=== PATIENT | male | born 1940 | race Caucasian/White ===

== ENCOUNTER 2018-09-06 15:09 | Inpatient (IN) | payer MEDICARE, OTHER ==
[~2018-09-06] VITALS: Ht 182.9 cm; Wt 76.7 kg
[~2018-09-06 15:09] MED LIST: PIPERACILLIN /TAZOBACTAM 2.25 G in IV D5W 50 ML IV SCH
--- NOTE | 2018-09-06 15:22 | NUR ---
DR BRAMBILA AT BEDSIDE FOR EVAL.
--- NOTE | 2018-09-06 15:27 | NUR ---
IV LINE STARTED BLOOD DRAWN AND SENT TO LAB.
--- NOTE | 2018-09-06 15:28 | NUR ---
PT BIBRA FROM SNF TO ED BED 08. FAMILY AT BEDSIDE ENDORSING FEVER EARLIER. PT WAS GIVEN TYLENOL PRIOR TO TRANSFER. DIALYSIS PT. GOWNED AND PLACED ON MONITOR. AWAITING MD WATTERS.
[2018-09-06] MEDS ORDERED: IV NS 0.9% 1,000 ML BAG IV ONE ×2 (15:30→16:30)
[2018-09-06 15:40] LABS: EOSINOPHILS % (AUTO) 0.1 % (0.0-6.0); HEMATOCRIT 28 % (39-51); HEMOGLOBIN 8.9 g/dL (13.5-17.5); MONOCYTES # (AUTO) 0.6 /CMM (0.1-1.30)
[2018-09-06 15:43] LABS: BASOPHILS % (AUTO) 0.2 % (0.0-2.0); LYMPHOCYTES # (AUTO) 0.5 /CMM (0.8-4.8); LYMPHOCYTES % (AUTO) 2.5 % (20.0-44.0); MEAN CORPUSCULAR HGB CONC 32 g/dl (31.0-36.0); MEAN CORPUSCULAR VOLUME 91 fL (80-96); MONOCYTES % (AUTO) 2.8 % (2.0-12.0); NEUTROPHILS # (AUTO) 19.2 /CMM (1.8-8.9); NEUTROPHILS % (AUTO) 94.4 % (43.0-81.0); PLATELET COUNT (AUTO) 279 /CMM (150-450); RED BLOOD CELL COUNT(AUTO) 3.06 MIL/uL (4.5-6.0); WHITE BLOOD COUNT (AUTO) 20.3 K/uL (4.3-11.0)
[2018-09-06 15:48] LABS: CALCIUM, SERUM 9.5 mg/dL (8.5-10.1); CARBON DIOXIDE 26 mmol/L (21-32); CHLORIDE 102 mmol/L (98-107); CREATININE 2.5 mg/dL (0.6-1.3); GLUCOSE 173 mg/dL (74-106); POTASSIUM 4.1 mmol/L (3.5-5.1); SODIUM SERUM 138 mmol/L (136-145); UREA NITROGEN, BLOOD 47 mg/dL (7-18)
[2018-09-06 15:53] LABS: ALANINE AMINOTRANSFERASE 26 U/L (12-78); ALBUMIN 1.9 g/dL (3.4-5.0); ALKALINE PHOSPHATASE 168 U/L (46-116); ASPARTATE AMINOTRANSFERASE 24 U/L (15-37); BILIRUBIN,DIRECT 0.1 mg/dL (0.0-0.2); BILIRUBIN,TOTAL 0.4 mg/dL (0.2-1.0); TOTAL PROTEIN, SERUM 7.6 g/dL (6.4-8.2)
[2018-09-06] MEDS ORDERED: [UNRECOGNIZED DRUG - CODE] TD (16:02)
[2018-09-06] MEDS ORDERED: ASPI-1169 GT (16:02)
[2018-09-06] MEDS ORDERED: ATOR10TA GT (16:02)
[2018-09-06] MEDS ORDERED: BUDE0.5A4 IH (16:02)
[2018-09-06] MEDS ORDERED: POLY17PO4 GT (16:02)
[2018-09-06] MEDS ORDERED: CHLO473M5 MM (16:02)
[2018-09-06] MEDS ORDERED: LIDO30CR47 TP (16:02)
[2018-09-06] MEDS ORDERED: METO25TA20 GT (16:02)
[2018-09-06] MEDS ORDERED: CLON0.1T GT (16:02)
[2018-09-06] MEDS ORDERED: DOCU50LI GT (16:02)
[2018-09-06] MEDS ORDERED: VIT500LI GT (16:02)
[2018-09-06] MEDS ORDERED: AMIO200T4 GT (16:02)
[2018-09-06] MEDS ORDERED: SEVE0.8P GT (16:02)
[2018-09-06] MEDS ORDERED: ACET650S26 GT (16:02)
[2018-09-06] MEDS ORDERED: FOLI0.8T23 GT (16:02)
[2018-09-06] MEDS ORDERED: NPH,100V SQ (16:02)
[2018-09-06] MEDS ORDERED: OMEG1CAP GT (16:02)
[2018-09-06] MEDS ORDERED: TRAM50TA2 GT ×2 (16:02)
[2018-09-06] MEDS ORDERED: IPRA3AMP23 IH (16:02)
[2018-09-06] MEDS ORDERED: ERYT200S16 GT (16:02)
[2018-09-06] MEDS ORDERED: INSU100V39 SQ (16:02)
[2018-09-06] MEDS ORDERED: METO5SOL2 GT (16:02)
[2018-09-06] MEDS ORDERED: BISA10SU11 RC (16:02)
[2018-09-06] MEDS ORDERED: LANS30CA54 GT (16:02)
[2018-09-06] MEDS ORDERED: ONDA4TAB5 GT (16:02)
[2018-09-06 16:13] LABS: APPEARANCE,URINE Slightly Cloudy (CLEAR); BILIRUBIN,URINE Negative (NEGATIVE); BLOOD, URINE Trace-lysed Ery/uL (NEGATIVE); COLOR,URINE Yellow (YELLOW); KETONES,URINE Negative (NEGATIVE); LEUKOCYTE ESTERASE ,URINE Large (NEGATIVE); NITRITE, URINE Negative (NEGATIVE); PROTEIN,URINE >=300 mg/dl (NEGATIVE); UGLUCOSE Negative (NEGATIVE); UROBILINOGEN,URINE 0.2 EU/dL (0.2)
[2018-09-06 16:20] LABS: BACTERIA,URINE Many /HPF (None Seen); SQUAMOUS EPITHELIAL CELL,UR Few /HPF (None Seen); WBC,URINE 21-50 /HPF (0-3)
[2018-09-06] MEDS ORDERED: IV NS 0.9% 500 ML BAG IV ONE (16:30)
[2018-09-06] MEDS ORDERED: PIPERACILLIN /TAZOBACTAM 3.375 G in IV D5W 50 ML IV ONE (17:00)
[2018-09-06] MEDS ORDERED: VANCOMYCIN 1 GM in IV D5W 250 ML IV ONE (17:00)
--- NOTE | 2018-09-06 17:57 | NUR ---
REPORT GIVEN TO MARVA ORELLANA. PT AWAITING TRANSFER TO FLOOR.
[2018-09-06] MEDS ORDERED: MAG HYDROX/AL HYDROX/SIMETH 30 ML UDC GT PRN (18:00)
[2018-09-06] MEDS ORDERED: ONDANSETRON HCL/PF 4 MG/2 ML VIAL IVP PRN (18:00)
[2018-09-06] MEDS ORDERED: CLONIDINE HCL 0.1 MG TABLET GT PRN (18:00)
[2018-09-06] MEDS ORDERED: DEXTROSE 50%-WATER 50 ML DISP.SYRIN IV PRN (18:00)
[2018-09-06] MEDS ORDERED: ALBUTEROL FS 2.5 MG/3 ML VIAL.NEB NEB PRN (18:00)
[2018-09-06] MEDS ORDERED: IPRATROPIUM NEB FS 0.5 MG/2.5 ML AMPUL.NEB NEB PRN (18:00)
[2018-09-06] MEDS ORDERED: BISACODYL SUPP (10 MG) 10 MG/SUPP.RECT SUPP.RECT RC PRN (18:00)
[2018-09-06] MEDS ORDERED: MORPHINE SULFATE INJ 2 MG/ML DISP.SYRIN IV PRN (18:00)
[2018-09-06] MEDS ORDERED: MAGNESIUM HYDROXIDE 30 ML UDC GT PRN (18:00)
[2018-09-06] MEDS ORDERED: HYDROCODONE/APAP 5/325MG 1 EACH TABLET GT PRN (18:00)
[2018-09-06] MEDS ORDERED: METOCLOPRAMIDE HCL 10 MG/10 ML UDC GT PRN (18:00)
[2018-09-06] MEDS ORDERED: FEE PK DOSING 1 MIN EA MC ONE (18:05)
--- NOTE | 2018-09-06 18:20 | NUR ---
VICE PRESIDENT SUPPLY CHAINNURSE AUDITOR NOTE PT ARRIVED TO TELE UNIT IN STABLE [place]ON VIA GURNEY ACCOMPANIED BY ER STAFF AND DAUGHTER. PT IS A/O 1, APPEARS TO BE ALTERED. CURRENTLY HAS A TRACH ON COOL AEROSOL ON 2L/MIN SAT 99%.RESPIRATIONS ARE EVEN AND UNLABORED, NOT IN ANY ACUTE DISTRESS NOTED. NOTIFIED RT TO EXAMINE THE PT. PUPILS ARE REACTIVE TO LIGHT. ABDOMEN IS SOFT AND NONDISTENDED, BOWEL SOUNDS ARE PRESENT IN ALL 4 QUADRANTS UPON AUSCULTATION. NO BLADDER DISCOMFORT. PER DAUGHTER, PT NEEDS TO BE ON ROHO CUSHION D/T "STAGE 3 WOUND" PER DTR. BP WNL. DR. BORRERO NOTIFIED OF ADMISSION. SAFETY MEASURES ARE IN PLACE. INSTRUCTED PT AND DTR TO USE CALL LIGHT WHEN ASSISTANCE IS NEEDED, CALL LIGHT IS LEFT WITHIN REACH. WILL ENDORSE TO NEXT SHIFT FOR CONTINUITY OF CARE.
[2018-09-06] MEDS ORDERED: IV NS 0.9% 1,000 ML IV PRN (18:30)
[2018-09-06 20:00] VITALS: BP 105/50
--- NOTE | 2018-09-06 20:00 | NUR ---
CAMPUS DEAN NOTES PATIENT ASLEEP IN BED WITH NO DISTRESS NOTED. CALL LIGHT WITHIN REACH. TRACH INTACT AND PATENT. NO RESPIRATORY DISTRESS NOTED. GT INTACT AND PATENT. NO FACIAL GRIMACING OR GROANING TO INDICATE PAIN OR DISCOMFORT. MIDLINE INTACT AND PATENT. ALL BELONGINGS KEPT NEAR BEDSIDE. WILL CONTINUE TO MONITOR.
[2018-09-06 20:05] LABS: BAND % (MANUAL) 5 % (0.0-5.0); LYMPHOCYTES % (MANUAL) 2 % (16-48); MONOCYTES % (MANUAL) 6 % (0-11.0); NEUTROPHILS % (MANUAL) 87 (42-76)
[2018-09-06] MEDS ORDERED: ATORVASTATIN 10 MG TABLET GT SCH (22:00)
--- NOTE | 2018-09-06 22:15 | NUR ---
SPOKE WITH DR. MORENO RE: CRITICAL TROPONIN 1.122 WITH NNO RECEIVED. PATIENT ASLEEP AND REMAINS TACTILE TO ALL STIMULI. NO DISTRESS NOTED. VITALS WNL. WILL CONTINUE TO MONITOR
[2018-09-06] MEDS: ASPIRIN 81 MG TAB.CHEW GT SCH (22:47)
[2018-09-06] MEDS: MEROPENEM 500 MG in IV NS 0.9% 50 ML IV SCH (22:48)
[2018-09-06] MEDS: BLOOD SUGAR DIAGNOSTIC 1 EACH STRIP IN SCH ×2 (22:48→23:14)
[2018-09-06] MEDS: HEPARIN SODIUM, PORCINE 5000 UNITS/1 ML VIAL SQ SCH (22:51)
[2018-09-07] VITALS: BP 103/44
[2018-09-07 04:00] VITALS: BP 112/48
[2018-09-07] MEDS: BLOOD SUGAR DIAGNOSTIC 1 EACH STRIP IN SCH ×3 (06:25→18:23)
[2018-09-07] MEDS: INSULIN REGULAR, HUMAN 100 UNIT/ML 3 ML VIAL SQ PRN ×3 (06:25→18:24)
--- NOTE | 2018-09-07 06:37 | NUR ---
MAGAZINE EDITOR NOTES PATIENT ASLEEP IN BED WITH NO DISTRESS NOTED. CALL LIGHT WITHIN REACH. TRACH INTACT AND PATENT. GTF RUNNING AT 65ML/HR. NO ABDOMINAL DISTENTION NOTED. SKIN CARE RENDERED AND TOLERATED WELL. REPOSITIONED Q2HRS AND PRN. NO FACIAL GRIMACING OR GROANING TO INDICATE PAIN OR DISCOMFORT. BLADDER SCANS RENDERED ORDERED. ALL DUE MEDS GIVEN ORDERED WITH NO ASE NOTED. RIGHT HAND MITTEN INTACT WITH NO NEW SKIN BREAKDOWN OR DISCOLORATION AND NOTED WITH GOOD CIRCULATION. REMOVED Q2HRS AND PRN. BED IN LOW LOCK SETTING. ALL BELONGINGS KEPT NEAR BEDSIDE. WILL ENDORSE TO ONCOMING SHIFT.
[2018-09-07 07:17] LABS: BASOPHILS % (AUTO) 0.3 % (0.0-2.0); CALCIUM, SERUM 8.5 mg/dL (8.5-10.1); CARBON DIOXIDE 21 mmol/L (21-32); CHLORIDE 104 mmol/L (98-107); CREATININE 2.8 mg/dL (0.6-1.3); EOSINOPHILS % (AUTO) 1.2 % (0.0-6.0); GLUCOSE 228 mg/dL (74-106); HEMATOCRIT 23 % (39-51); HEMOGLOBIN 7.6 g/dL (13.5-17.5); LYMPHOCYTES # (AUTO) 0.4 /CMM (0.8-4.8); LYMPHOCYTES % (AUTO) 3.2 % (20.0-44.0); MAGNESIUM 2.1 mg/dL (1.8-2.4); MEAN CORPUSCULAR HGB CONC 32 g/dl (31.0-36.0); MEAN CORPUSCULAR VOLUME 93 fL (80-96); MONOCYTES # (AUTO) 0.5 /CMM (0.1-1.30); MONOCYTES % (AUTO) 3.9 % (2.0-12.0); NEUTROPHILS # (AUTO) 11.7 /CMM (1.8-8.9); NEUTROPHILS % (AUTO) 91.4 % (43.0-81.0); PHOSPHORUS 2.7 mg/dL (2.5-4.9); PLATELET COUNT (AUTO) 222 /CMM (150-450); POTASSIUM 3.9 mmol/L (3.5-5.1); RED BLOOD CELL COUNT(AUTO) 2.52 MIL/uL (4.5-6.0); SODIUM SERUM 137 mmol/L (136-145); UREA NITROGEN, BLOOD 54 mg/dL (7-18); WHITE BLOOD COUNT (AUTO) 12.8 K/uL (4.3-11.0)
[2018-09-07 07:23] LABS: CHOLESTEROL 84 mg/dL (<200); HDL CHOLESTEROL 21 mg/dL (40-60); LDL 40 mg/dL (0-99); THYROID STIMULATING HORMONE 5.644 uIU/mL (0.358-3.74); TRIGLYCERIDES 255 mg/dL (30-150)
[2018-09-07] MEDS: BUDESONIDE RESPULE INH 0.25 MG/2 ML AMPUL.NEB NEB SCH ×2 (07:30→19:14)
[2018-09-07 08:00] VITALS: BP 119/39
--- NOTE | 2018-09-07 08:23 | NUR ---
[place] MARSHAL OPENING NOTES PATIENT RECEIVED ASLEEP IN BED WITH NO SOB OR ACUTE DISTRESS NOTED. ALERT TO VERBAL AND TOUCH, NON VERBAL. TRACH INTACT AND PATENT. GTF RUNNING AT 65ML/HR. NO ABDOMINAL DISTENTION NOTED. SKIN CARE RENDERED DURING CABLE STRANDER. REPOSITIONED Q2HRS AND PRN. NO FACIAL GRIMACING OR GROANING. RIGHT HAND MITTEN INTACT WITH NO NEW SKIN BREAKDOWN OR DISCOLORATION AND NOTED WITH GOOD CIRCULATION. REMOVED Q2HRS AND PRN. SAFETY MEASURES IN PLACE, BED IN LOW LOCK SETTING, CALL LIGHT WITHIN REACH. WILL CONTINUE TO MONITOR.
[2018-09-07] MEDS: METOPROLOL TARTRATE 25 MG TABLET GT SCH ×2 (09:00→17:39)
[2018-09-07] MEDS: AMIODARONE HCL 200 MG TABLET GT SCH (09:00)
[2018-09-07 09:14] LABS: IRON, SERUM 23 ug/dl (50-175); TOTAL IRON BINDING CAPACITY 102 ug/dl (250-450)
[2018-09-07] MEDS: SEVELAMER CARBONATE 0.8 GM POWD.PACK GT SCH ×3 (09:42→17:39)
[2018-09-07] MEDS: CHLORHEXIDINE GLUCONATE 15 ML UDC MM SCH ×2 (09:42→17:39)
[2018-09-07] MEDS: VIT B CMPLX 3/FA/VIT C/BIOTIN 1 TAB TABLET GT SCH (09:42)
[2018-09-07] MEDS: ASPIRIN 81 MG TAB.CHEW GT SCH (09:42)
[2018-09-07] MEDS: DOCUSATE SODIUM LIQ 100 MG/10 ML UDC GT SCH (09:42)
[2018-09-07] MEDS: HEPARIN SODIUM, PORCINE 5000 UNITS/1 ML VIAL SQ SCH ×2 (09:45→22:07)
[2018-09-07 09:48] LABS: FERRITIN 2315 ng/mL (8-388)
[2018-09-07] MEDS: MEROPENEM 500 MG in IV NS 0.9% 50 ML IV SCH ×2 (11:05→22:05)
[2018-09-07] MEDS: ACETAMINOPHEN 325 MG TABLET MC PRN ×2 (11:06→17:38)
--- NOTE | 2018-09-07 12:00 | NUR ---
BP MEDS HELD DUE TO LOW BP AND UPCOMING DIALYSIS TREATMENT.
[2018-09-07 12:35] LABS: ABG BASE EXCESS -3.9 mmol/L; ABG OXYGEN SATURATION 95.8 % (92.0-98.5); ABG PCO2 32.1 mmHg (35.0-45.0); ABG PH 7.415 (7.350-7.450); ABG PO2 82.1 mmHg (75.0-100.0); AaDO2 79.7 mmHg; COHb 0.8 % (0.5-1.5); MetHb 0.5 % (0.0-1.5); O2Hb 94.6 % (94.0-97.0); SITE, ABG Right Radial
[2018-09-07] MEDS: DAKINS QUARTER STRENGTH (0.125%) 480 ML BOTTLE TOP SCH (13:33)
--- NOTE | 2018-09-07 14:35 | NUR ---
MS RN NOTE WOUND CARE ORDERS NOT PRESENT UPON TAKING OVER CARE OF PATIENT. FAMILY AT BEDSIDE AND DEMANDING THAT ALL WOUND CARE PROCEDURES AND MEDICATION BE SIMILAR TO THOSE USED AT [facility]. SACRAL WOUND CARE COMPLETED W/ SALINE, DAKINS, GAUZE PACKING AND MEPILEX COVERAGE. MD NOTIFIED. STATED THAT IT IS OK TO TREAT WOUND PER FAMILY REQUEST AND TO PLACE ORDERS FOR WOUND CARE SUPPLIES THAT EXIST IN PATIENTS SNF CHART. PATIENT REPOSITIONED [id number] AND POSITIONED FAMILY REQUESTED. FAMILY APPEARED SATISFIED AT CONCLUSION OF WOUND CARE AND POSITIONING. PATIENT TO HAVE HD.
[2018-09-07] MEDS ORDERED: VANCOMYCIN 1 GM in IV D5W 250 ML IV ONE (15:00)
[2018-09-07 16:00] VITALS: BP 145/70
--- NOTE | 2018-09-07 17:00 | NUR ---
MS RN NOTE WOUND CARE COMPLETED A SECOND TIME AT [facility] REQUEST TO USE THE REQUESTED HONEY-MED OINTMENT THAT PATIENT BROUGHT TO HOSPITAL. OK'D USE OF SAID OINTMENT. ORDERS PER MD PLACED. PATIENT FAMILY OBSERVED PROCESS AND WERE SATISFIED.
[2018-09-07] MEDS ORDERED: LIDOCAINE 5% OINT 35.44 GM TUBE TP PRN (17:30)
--- NOTE | 2018-09-07 17:45 | NUR ---
MS RN NOTE DIALYSIS COMPLETED WITHOUT INCIDENT. 2 LITERS REMOVED.
[2018-09-07] MEDS ORDERED: VANCOMYCIN POST DIALYSIS 500MG IV PRN ×2 (18:00)
--- NOTE | 2018-09-07 18:00 | NUR ---
MS RN NOTE VANCOMYCIN DUE AT 1500 GIVEN AT 1800 D/T DIALYSIS TREATMENT BEING COMPLETED.
--- NOTE | 2018-09-07 18:10 | NUR ---
MS RN NOTE ORDERS FOR PATIENT REQUESTED WOUND CARE ITEMS PLACE. HONEY-MED AND LIDOCAINE.
--- NOTE | 2018-09-07 19:12 | NUR ---
ENGINE SETTER CLOSING NOTES PATIENT ASLEEP IN BED WITH NO SOB OR ACUTE DISTRESS NOTED. TRACH INTACT AND PATENT. GTF RUNNING AT 65ML/HR. NO ABDOMINAL DISTENTION NOTED. WOUND CARE RENDERED TWICE DURING SHIFT AT FAMILY REQUEST. PATIENT REPOSITIONED Q2HRS AND PRN. DIALYSIS COMPLETED TODAY W/ 2 LITERS FLUID REMOVED. RFA IV INTACT AND PATENT. ALL DUE MEDS GIVEN ORDERED WITH NO ASE NOTED. RIGHT HAND MITTEN INTACT WITH NO NEW SKIN BREAKDOWN OR DISCOLORATION AND NOTED WITH GOOD CIRCULATION. REMOVED Q2HRS AND PRN. BED IN LOW LOCK SETTING. ALL BELONGINGS KEPT NEAR BEDSIDE. CALL LGHT WITHIN REACH. FAMILY AT BEDSIDE. WILL ENDORSE TO ONCOMING SHIFT.
--- NOTE | 2018-09-07 19:30 | NUR ---
AMBIKA RN OPENING NOTES BEDSIDE REPORT RECIEVED PATIENT SEEN IN BED. NO SOB OR ACUTE DISTRESS NOTED. TRACH INTACT AND PATENT. GTF RUNNING AT 65ML/HR. NO ABDOMINAL DISTENTION NOTED. MONTY AT THE BEDSIDE. POC REVIEWED QUESTIONS CONCERNS ADDRESSED. REAASSURED THAT PATIENT WILL BE REPOSITIONED Q2HRS AND PRN. RFA IV INTACT AND PATENT. RIGHT HAND MITTEN INTACT WITH NO NEW SKIN BREAKDOWN OR DISCOLORATION AND NOTED WITH GOOD CIRCULATION. BED IN LOW LOCKED POSITION SRX3. CALL LIGHT WITHIN REACH. WILL CONT TO MONITOR.
[2018-09-07 20:00] VITALS: BP 109/53
--- NOTE | 2018-09-07 20:00 | NUR ---
patient still has monitor tech applied order to change to med surge. pt requests to leave it on charge nurse and tele monitor notified.. patient sr in 70's
--- NOTE | 2018-09-07 20:10 | NUR ---
patient repositioned to left side with ferdinand leong. nena at the bedside.
--- NOTE | 2018-09-07 22:00 | NUR ---
patient repositioned to right side with ferdinand leong.
--- NOTE | 2018-09-07 23:05 | NUR ---
nena jennifer. updated on patient status. questions concerns addressed.
[2018-09-08] VITALS (16 sets, daily range): BP systolic 96–132; BP diastolic 36–61
--- NOTE | 2018-09-08 00:18 | NUR ---
Dr. Sultana ordered 1 unit of prbc for infusion for today that was not carried. out. Dr. Jin [facility] Provider called and informed this orders was not carried out. dr. eckert patient hemoglobin is 7.6 and is reciving hemodialysis. new order to hold unit of blood and infuse at next dialyisis treatment. Addendum: 09/08/18 at 0234 by ELLE RANDOLPH RN patient repositioned to left side. with ferdinand hartmann
--- NOTE | 2018-09-08 00:30 | NUR ---
Tube feeding ended. To resume tomorrow at 8am after 8 hour stop.
[2018-09-08] MEDS: BLOOD SUGAR DIAGNOSTIC 1 EACH STRIP IN SCH ×4 (02:15→17:37)
--- NOTE | 2018-09-08 02:15 | NUR ---
bladder scan, accucheck bladder scan performed less then 50 ml present in bladder of urine. accucheck performed late. insulin held until next scheduled dose. patient repositioned to right side.
--- NOTE | 2018-09-08 06:15 | NUR ---
rn pm closing note. patient turned and repositioned to right side. iv to right fa heplocked patent, intact. patient tube feeding on hold residual was 30ml. to resume tube feedign at 0800. bed down locked air matress inflated. trach collar in place breathing even and unlabored. will cont to monitor. on tele for obserbationj hr 69 sr. will endorse to next shift.
[2018-09-08] MEDS: INSULIN REGULAR, HUMAN 100 UNIT/ML 3 ML VIAL SQ PRN ×3 (06:19→17:21)
[2018-09-08 07:00] LABS: BASOPHILS % (AUTO) 0.2 % (0.0-2.0); EOSINOPHILS % (AUTO) 0.8 % (0.0-6.0); HEMATOCRIT 23 % (39-51); HEMOGLOBIN 7.6 g/dL (13.5-17.5); LYMPHOCYTES # (AUTO) 0.9 /CMM (0.8-4.8); LYMPHOCYTES % (AUTO) 6.8 % (20.0-44.0); MEAN CORPUSCULAR HGB CONC 33 g/dl (31.0-36.0); MEAN CORPUSCULAR VOLUME 91 fL (80-96); MONOCYTES # (AUTO) 0.7 /CMM (0.1-1.30); MONOCYTES % (AUTO) 4.9 % (2.0-12.0); NEUTROPHILS % (AUTO) 87.3 % (43.0-81.0); PLATELET COUNT (AUTO) 239 /CMM (150-450); RED BLOOD CELL COUNT(AUTO) 2.56 MIL/uL (4.5-6.0); WHITE BLOOD COUNT (AUTO) 13.8 K/uL (4.3-11.0)
[2018-09-08 07:05] LABS: ALANINE AMINOTRANSFERASE 19 U/L (12-78); ALBUMIN 1.6 g/dL (3.4-5.0); ALKALINE PHOSPHATASE 119 U/L (46-116); ASPARTATE AMINOTRANSFERASE 17 U/L (15-37); BILIRUBIN,TOTAL 0.4 mg/dL (0.2-1.0); CALCIUM, SERUM 8.5 mg/dL (8.5-10.1); CARBON DIOXIDE 27 mmol/L (21-32); CHLORIDE 101 mmol/L (98-107); CREATININE 2.3 mg/dL (0.6-1.3); GLUCOSE 169 mg/dL (74-106); MAGNESIUM 1.9 mg/dL (1.8-2.4); PHOSPHORUS 1.3 mg/dL (2.5-4.9); SODIUM SERUM 136 mmol/L (136-145); TOTAL PROTEIN, SERUM 6.6 g/dL (6.4-8.2); UREA NITROGEN, BLOOD 37 mg/dL (7-18)
--- NOTE | 2018-09-08 07:31 | NUR ---
MS RN OPENING NOTES RECEIVED PT ASLEEP IN BED, EASILY AROUSED. A/O X1; NONVERBAL. PT ON TRACH T-PIECE AT 5L, WITH NO ACUTE RESPIRATORY DISTRESS NOTED. PT NOT EXHIBITING PAIN OR ANY DISCOMFORT AT THIS TIME. PT A MS PT PER NIGHT NURSE BUT REQUESTED PT TO BE STILL ON TELEMONITORING, SR WITH HR 72. PIV RFA G18 SL,FLUSHED WITH NS, INTACT AND OPERATIONAL. SOFT MITTEN TO RIGHT HAND NOTED FOR ACUTE MEDICAL RESTRAINTS, WILL ASSESS PER PROTOCOL. ALSO, PER NIGHT NURSE, ORDER TO TRANSFUSE BLOOD FROM 09/07 CLARIFIED; TO TRANSFUSE BLOOD WITH THE NEXT HD. PT KEPT COMFORTABLE. HOB ELEVATED. PT'S BED IN LOWEST, LOCKED POSITION WITH SRX3. CALL LIGHT AND FLUID KEPT WITHIN REACH. WILL CONTINUE PLAN OF CARE.
[2018-09-08] MEDS: BUDESONIDE RESPULE INH 0.25 MG/2 ML AMPUL.NEB NEB SCH ×2 (08:12→19:11)
[2018-09-08] MEDS: NEPRO 1,000 ML BOTTLE GT PRN (08:20)
[2018-09-08] MEDS: VIT B CMPLX 3/FA/VIT C/BIOTIN 1 TAB TABLET GT SCH (08:24)
[2018-09-08] MEDS: DOCUSATE SODIUM LIQ 100 MG/10 ML UDC GT SCH (08:24)
[2018-09-08] MEDS: AMIODARONE HCL 200 MG TABLET GT SCH (08:24)
[2018-09-08] MEDS: ASPIRIN 81 MG TAB.CHEW GT SCH (08:24)
[2018-09-08] MEDS: CHLORHEXIDINE GLUCONATE 15 ML UDC MM SCH ×2 (08:24→17:19)
[2018-09-08] MEDS: HEPARIN SODIUM, PORCINE 5000 UNITS/1 ML VIAL SQ SCH ×2 (08:26→20:29)
[2018-09-08] MEDS: MEROPENEM 500 MG in IV NS 0.9% 50 ML IV SCH ×2 (08:28→20:27)
[2018-09-08] MEDS: SEVELAMER CARBONATE 0.8 GM POWD.PACK GT SCH (08:28)
[2018-09-08] MEDS: DAKINS QUARTER STRENGTH (0.125%) 480 ML BOTTLE TOP SCH (08:29)
[2018-09-08] MEDS: METOPROLOL TARTRATE 25 MG TABLET GT SCH ×2 (09:00→17:22)
--- NOTE | 2018-09-08 09:37 | NUR ---
MS RN NOTES PT SEEN BY DR MERAZ WITH PRESENT AT BEDSIDE. DR MERAZ VERBALLY ORDERED TO TRANSFUSE 1PRBC NOW WITH HGB OF 7.6. CN/DEBBIE AWARE. BT CONSENT SIGNED BY SPOUSE/MONTY. WILL CONTINUE TO MONITOR PT.
[2018-09-08] MEDS ORDERED: NEUTRA PHOS 1 POWD.PACKET PO ONE (10:00)
--- NOTE | 2018-09-08 10:11 | NUR ---
PMV TRIALS DEFFERED DUE TO INCREASED AMOUNT OF SECRETIONS. PT'S FAMILY NOTIFIED. RN GUIDO AWARE. NO S/S OF SOB NOTED
--- NOTE | 2018-09-08 10:40 | NUR ---
MS RN NOTES BT STARTED AT 1038. VERIFIED BLOOD AND WITNESSED BY ANOTHER RN/VIDHI. VS TAKEN. SPOUSE PRESENT AT BEDSIDE. WILL CONTINUE TO MONITOR PT.
--- NOTE | 2018-09-08 10:45 | NUR ---
MS RN NOTES BT SITE CHANGED; RFA G18, LEAKED. NEWLY INSERTED PIV TO LEFT WRIST G18, FLUSHED WITH NS, INTACT AND OPERATIONAL. LEFT WRIST USED TO CONTINUE THE BLOOD TRANSFUSION. ALSO, EXTRA PIV TO LFA G20, FLUSHED WITH NS, INTACT AND OPERATIONAL WELL. WILL CONTINUE TO MONITOR.
[2018-09-08] MEDS: ACETAMINOPHEN 325 MG TABLET MC PRN ×2 (12:33→22:41)
--- NOTE | 2018-09-08 12:53 | NUR ---
MS RN NOTES RECEIVED CALL FROM [facility], SPOKE TO LAUREN. PT RESULTED POSITIVE FOR BLOOD CULTURE WITH GRAM NEGATIVE RODS. HOSPITALIST/ADMITTING COORDINATOR/NN ON THE UNIT AND NOTIFIED.
--- NOTE | 2018-09-08 14:05 | NUR ---
MS RN NOTES BT ENDED AT 1401. VS TAKEN AND RECORDED.
--- NOTE | 2018-09-08 18:51 | NUR ---
MS REYNA NOTES ID/OYSTER BED WORKER/MAURICIOA ON THE UNIT; ORDERED STRAIGHT CATH FOR URINE CULTURE. URINE OUTPUT RESULTED 600ML. OYSTER BED WORKER/MAURICIOA MADE AWARE.
--- NOTE | 2018-09-08 18:53 | NUR ---
MS RN CLOSING NOTES PT IS AWAKE, IN BED. A/O X1; NONVERBAL. PT ON TRACH T-PIECE WITH SPEAKING VALVE ON, WITH NO ACUTE RESPIRATORY DISTRESS NOTED. PT NOT EXHIBITING PAIN OR ANY DISCOMFORT AT THIS TIME.PT STILL ON TELEMONITORING PER 'S REQUEST, SR WITH HR 71. PIV LFA G20 SL AND LEFT WRIST G18, BOTH FLUSHED WITH NS, INTACT AND OPERATIONAL. SOFT MITTEN TO RIGHT HAND NOTED FOR ACUTE MEDICAL RESTRAINT, WILL ASSESS PER PROTOCOL. PT ON GT NEPHRO FEEDING 65ML/HR [id number]. FEEDING TUBE ON GOING WITH 10ML RESIDUAL. ALL NEEDS AND CARE PROVIDED. TURNED AND REPOSITIONED Q2 HOURS. PT KEPT COMFORTABLE. HOB ELEVATED. PT'S BED IN LOWEST, LOCKED POSITION WITH SRX3. CALL LIGHT AND FLUID KEPT WITHIN REACH. WILL ENDORSE TO INCOMING NIGHT NURSE FOR DORITA.
--- NOTE | 2018-09-08 19:10 | NUR ---
RN MS NOTES RECEIVED PATIENT IN BED AWAKE ALERT AND ORIENTED X1, NON VERBAL, ON T PIECE COOL AEROSOL, 5LITERS, 28% FIO2, 02 TOLERATING WELL. NO SOB PRESENT, SUCTION EQUIPMENT IN PLACE, ON TELE MONITORING SR 78 PER REQUEST. HEAD OF BED ELEVATED FOR ASPIRATION PRECAUTIONS, GTUBE INTACT AND PATENT, RESIDUAL 5-10CC. TOLERATING FEEDING WELL, PATIENT REPOSITIONED AND OFFLOADED TO SIDES FOR WOUND CARE MANAGEMENT, IV SITE TO LEFT WRIST #18 G SL NO REDNESS, NO INFILTRATION PRESENT, IV SITE TO LEFT FA #20G INTACT AND PATENT SL NO REDNESS, NO INFILTRATION, RIGHT CW DIALYSIS CATH, INTACT DRESSING IS CLEAN AND DRY. SPECIALTY MATTRESS IN TACT AND PROPERLY FLOWING, RIGHT HAND MITTEN RESTRAINT IN PLACE, SKIN ASSESSED FOR CIRCULATION , WNL, SKIN COLOR, WNL, PULSES PALPABLE, ORIENTED TO STAFF AND CALL LIGHT AND KEPT WITHIN REACH ALL NEEDS ATTENDED AT THIS TIME, WILL CONTINUE TO REPOSITION Q 2 HRS AND ATTEND TO NEEDS, REMAINS COMFORTABLE AT THIS TIME.
--- NOTE | 2018-09-08 19:20 | NUR ---
rn ms notes s/b jessica felix who spoke to at bedside regarding insertion of bailon catheter. agreed , new order received to insert bailon catheter, also showed iisdro cxr results with no further orders at this time. aware.
--- NOTE | 2018-09-08 20:30 | NUR ---
RN MS NOTES REPOSITIONED ON SIDE TO OFFLOAD SACRAL AREA.
--- NOTE | 2018-09-08 22:00 | NUR ---
rn ms notes bailon catheter inserted with sterile technique, tolerated well, with urine output, noted cloudy yellow urine.
--- NOTE | 2018-09-08 22:30 | NUR ---
RN MS NOTES REPOSITIONED ON SIDE TO OFFLOAD SACRAL AREA, HEELS, FLOATING
--- NOTE | 2018-09-08 22:41 | NUR ---
rn ms notes per request , give tylenol prior to wound care, upon assessment noted facial grimacing prn tylenol given as ordered, will wait for effectiveness than provide wound care, will continue to monitor.
[2018-09-09] VITALS: BP 132/59
[2018-09-09] MEDS: BLOOD SUGAR DIAGNOSTIC 1 EACH STRIP IN SCH ×5 (00:14→23:44)
[2018-09-09] MEDS: INSULIN REGULAR, HUMAN 100 UNIT/ML 3 ML VIAL SQ PRN ×5 (00:17→23:44)
--- NOTE | 2018-09-09 00:20 | NUR ---
rn ms notes gtube flowing for 16 hrs as ordered at this time will turn off. will endorse to am shift to resume as ordered 0800
--- NOTE | 2018-09-09 00:30 | NUR ---
RN MS NOTES REPOSITIONED ON SIDE TO OFFLOAD SACRAL AREA, HEELS, FLOATING
--- NOTE | 2018-09-09 02:30 | NUR ---
RN MS NOTES REPOSITIONED ON SIDE TO OFFLOAD SACRAL AREA, HEELS, FLOATING
[2018-09-09 04:00] VITALS: BP 135/68
--- NOTE | 2018-09-09 04:33 | NUR ---
RN MS NOTES REPOSITIONED ON SIDE TO OFFLOAD SACRAL AREA, HEELS, FLOATING
--- NOTE | 2018-09-09 06:20 | NUR ---
RN MS CLOSING NOTES PATIENT IN BED AWAKE ALERT AND ORIENTED X1, NON VERBAL, ON T PIECE COOL AEROSOL, 5LITERS, 28% FIO2, 02 TOLERATING WELL. NO SOB PRESENT, SUCTION EQUIPMENT IN PLACE, ON TELE MONITORING SR 74 HEAD OF BED ELEVATED FOR ASPIRATION PRECAUTIONS, GTUBE INTACT AND PATENT, RESIDUAL 5-10CC. TOLERATED FEEDING WELL, PATIENT REPOSITIONED AND OFFLOADED TO SIDES FOR WOUND CARE MANAGEMENT Q2HRS THROUGHOUT SHIFT, IV SITE TO LEFT WRIST #18 G SL NO REDNESS, NO INFILTRATION PRESENT, IV SITE TO LEFT FA #20G INTACT AND PATENT SL NO REDNESS, NO INFILTRATION, RIGHT CW DIALYSIS CATH, INTACT DRESSING IS CLEAN AND DRY. SPECIALTY MATTRESS INTACT AND PROPERLY FLOWING, RIGHT HAND MITTEN RESTRAINT IN PLACE, SKIN ASSESSED FOR CIRCULATION , WNL, SKIN COLOR, WNL, PULSES PALPABLE, CALL LIGHT AND KEPT WITHIN REACH , FREQUENT CHECKS DONE THROUGHOUT THE SHIFT, WOUND CARE PROVIDED X2 DRESSING IS CLEAN , DRY AND INTACT, CARDOSO CATHETER IS INTACT AND DRAINING WELL, WITH PROPER ALIGNMENT KEPT CLEAN ,ALL NEEDS ATTENDED AT THIS TIME, WILL CONTINUE TO MONITOR AND ATTEND TO NEEDS, REMAINS COMFORTABLE AT THIS TIME WILL ENDORSE TO NEXT SHIFT HEELS OFFLOADED, PILLOW PLACED BETWEEN KNEES TO OFFLOAD.
[2018-09-09 06:42] LABS: BASOPHILS % (AUTO) 0.1 % (0.0-2.0); EOSINOPHILS % (AUTO) 0.9 % (0.0-6.0); HEMATOCRIT 28 % (39-51); HEMOGLOBIN 9.3 g/dL (13.5-17.5); LYMPHOCYTES # (AUTO) 1.2 /CMM (0.8-4.8); LYMPHOCYTES % (AUTO) 8.3 % (20.0-44.0); MEAN CORPUSCULAR HGB CONC 33 g/dl (31.0-36.0); MEAN CORPUSCULAR VOLUME 90 fL (80-96); MONOCYTES # (AUTO) 0.8 /CMM (0.1-1.30); MONOCYTES % (AUTO) 5.1 % (2.0-12.0); NEUTROPHILS # (AUTO) 12.8 /CMM (1.8-8.9); NEUTROPHILS % (AUTO) 85.6 % (43.0-81.0); PLATELET COUNT (AUTO) 248 /CMM (150-450); RED BLOOD CELL COUNT(AUTO) 3.16 MIL/uL (4.5-6.0); WHITE BLOOD COUNT (AUTO) 14.9 K/uL (4.3-11.0)
[2018-09-09 06:57] LABS: CALCIUM, SERUM 9.1 mg/dL (8.5-10.1); CARBON DIOXIDE 25 mmol/L (21-32); CHLORIDE 102 mmol/L (98-107); CREATININE 2.7 mg/dL (0.6-1.3); GLUCOSE 153 mg/dL (74-106); SODIUM SERUM 139 mmol/L (136-145); UREA NITROGEN, BLOOD 53 mg/dL (7-18); VANCOMYCIN,RANDOM 20 ug/ml (18-26)
--- NOTE | 2018-09-09 07:00 | NUR ---
rn notes repositioned patient to the right. on air mattress.
[2018-09-09] MEDS: NEPRO 1,000 ML BOTTLE GT PRN (07:06)
--- NOTE | 2018-09-09 07:06 | NUR ---
rn ms notes new gt feeding in place and scanned endorse to next shift to start at 0800.
--- NOTE | 2018-09-09 07:25 | NUR ---
RN OPENING NOTES RECEIVED PATIENT IN BED AWAKE ALERT AND ORIENTED X1, NON VERBAL, ON T PIECE COOL AEROSOL, 5LITERS, 28% FIO2, 02 TOLERATING WELL. NO SOB PRESENT, SUCTION EQUIPMENT IN PLACE, ON TELE MONITORING SR 77. HEAD OF BED ELEVATED FOR ASPIRATION PRECAUTIONS, GTUBE INTACT AND PATENT, WILL RESTART FEEDING AT 0800. PATIENT REPOSITIONED AND OFFLOADED TO SIDES FOR WOUND CARE MANAGEMENT, IV SITE TO LEFT WRIST #18 G SL NO REDNESS, NO INFILTRATION, IV SITE TO LEFT FA #20G INTACT AND PATENT SL NO REDNESS, NO INFILTRATION, RIGHT CW DIALYSIS CATH, INTACT DRESSING IS CLEAN AND DRY. ON SPECIALTY MATTRESS AND PROPERLY FLOWING, RIGHT HAND MITTEN RESTRAINT IN PLACE, SKIN ASSESSED FOR CIRCULATION , WNL, SKIN COLOR, WNL, PULSES PALPABLE, ORIENTED TO STAFF AND CALL LIGHT AND KEPT WITHIN REACH. ALL NEEDS ATTENDED AT THIS TIME, WILL CONTINUE TO REPOSITION Q 2 HRS AND ATTEND TO NEEDS, REMAINS COMFORTABLE AT THIS TIME. BED IN LOW/LOCKED POSITION, SIDERAILS UP. WILL CONTINUE TO MONITOR ACCORDINGLY
[2018-09-09] MEDS: BUDESONIDE RESPULE INH 0.25 MG/2 ML AMPUL.NEB NEB SCH ×2 (07:35→19:37)
[2018-09-09] MEDS: AMIODARONE HCL 200 MG TABLET GT SCH (08:37)
[2018-09-09] MEDS: METOPROLOL TARTRATE 25 MG TABLET GT SCH ×2 (08:38→17:43)
[2018-09-09] MEDS: VIT B CMPLX 3/FA/VIT C/BIOTIN 1 TAB TABLET GT SCH (08:41)
[2018-09-09] MEDS: DOCUSATE SODIUM LIQ 100 MG/10 ML UDC GT SCH (08:43)
[2018-09-09] MEDS: ASPIRIN 81 MG TAB.CHEW GT SCH (08:43)
[2018-09-09] MEDS: CHLORHEXIDINE GLUCONATE 15 ML UDC MM SCH ×2 (08:43→17:43)
[2018-09-09] MEDS: DAKINS QUARTER STRENGTH (0.125%) 480 ML BOTTLE TOP SCH (08:44)
[2018-09-09] MEDS: ACETAMINOPHEN 325 MG TABLET MC PRN ×2 (08:50→15:47)
[2018-09-09] MEDS: HEPARIN SODIUM, PORCINE 5000 UNITS/1 ML VIAL SQ SCH ×2 (08:52→20:51)
[2018-09-09 09:00] VITALS: BP 133/56
--- NOTE | 2018-09-09 09:00 | NUR ---
RN NOTES REPOSITIONED PATIENT ON THE LEFT SIDE, OFFLOAD SACRAL AREA AND HEELS.
[2018-09-09] MEDS: MEROPENEM 500 MG in IV NS 0.9% 50 ML IV SCH ×2 (09:01→20:46)
--- NOTE | 2018-09-09 11:00 | NUR ---
RN NOTES REPOSITIONED PATIENT TO THE RIGHT SIDE, OFFLOAD SACRAL AREA AND HEELS.
--- NOTE | 2018-09-09 11:10 | NUR ---
RN NOTES OFF RESTRAINTS, PATIENT CALM, AT BEDSIDE REQUESTED TO TAKE IT OFF.
--- NOTE | 2018-09-09 11:30 | NUR ---
RN NOTES EVANGELIST WADSWORTH AT BEDSIDE, WOUND CARE RENDERED.
[2018-09-09] MEDS ORDERED: LIDOCAINE 1%-EPI 1:100,000 20 ML VIAL TP ONE (12:30)
[2018-09-09] MEDS: HYDROGEL DRESSING 90 GM TUBE TP SCH ×2 (12:44→20:58)
--- NOTE | 2018-09-09 13:30 | NUR ---
RN NOTES TURNED AND REPOSITIONED PATIENT ON THE LEFT SIDE, OFFLOAD SACRAL AREA AND HEELS
--- NOTE | 2018-09-09 15:15 | NUR ---
RN NOTES DR NOEL AT BEDSIDE DOING WOUND DEBRIDEMENT. CONSENT SIGNED
[2018-09-09 15:16] VITALS: BP 139/59
--- NOTE | 2018-09-09 16:00 | NUR ---
RN NOTES TURNED AND REPOSITIONED PATIENT ON THE RIGHT SIDE, OFFLOAD SACRAL AREA AND HEELS
--- NOTE | 2018-09-09 18:00 | NUR ---
RN NOTES TURNED AND REPOSITIONED PATIENT ON THE LEFT SIDE, OFFLOAD SACRAL AREA AND HEELS
--- NOTE | 2018-09-09 19:00 | NUR ---
RN MS NOTES RECEIVED PATIENT IN BED AWAKE ALERT AND ORIENTED X1, NON VERBAL, ON T PIECE COOL AEROSOL, 5LITERS, 28% FIO2, 02 TOLERATING WELL. NO SOB PRESENT, SUCTION EQUIPMENT IN PLACE, ON TELE MONITORING SR 64 PER REQUEST. HEAD OF BED ELEVATED FOR ASPIRATION PRECAUTIONS, GTUBE INTACT AND PATENT, RESIDUAL 5-10CC. TOLERATING FEEDING WELL, PATIENT REPOSITIONED AND OFFLOADED TO SIDES FOR WOUND CARE MANAGEMENT, IV SITE TO LEFT WRIST #18 G SL NO REDNESS, NO INFILTRATION PRESENT, IV SITE TO LEFT FA #20G INTACT AND PATENT SL NO REDNESS, NO INFILTRATION, RIGHT CW DIALYSIS CATH, INTACT DRESSING IS CLEAN AND DRY. SPECIALTY MATTRESS INTACT AND PROPERLY FLOWING, RIGHT HAND MITTEN RESTRAINT IN PLACE, SKIN ASSESSED FOR CIRCULATION , WNL, SKIN COLOR, WNL, PULSES PALPABLE, ORIENTED TO STAFF AND CALL LIGHT AND KEPT WITHIN REACH ALL NEEDS ATTENDED AT THIS TIME, WILL CONTINUE TO REPOSITION Q 2 HRS AND ATTEND TO NEEDS, REMAINS COMFORTABLE AT THIS TIME,HEELS OFFLOADED , CARDOSO CATHETER INTACT AND DRAINING WELL, WITH PROPER ALIGNMENT KEPT CLEAN.
--- NOTE | 2018-09-09 19:17 | NUR ---
RN CLOSING NOTES PATIENT IN STABLE CONDITION. ALL NEEDS ATTENDED AND PROVIDED. ALL DUE MEDICATIONS GIVEN ORDERED. TURNED AND REPOSITIONED [id number] NEEDED. SUCTION TRACH NEEDED, MOUTH CARE RENDERED. WOUND CARE RENDERED. ON AIR LOST MATTRESS. GTUBE IN PLACE, FEEDING RUNNING AT 65MLS/HR. KEPT PATIENT SAFE AND COMFORTABLE. BED IN LOW/LOCKED POSITION, SIDERAILS UP, HOB ELEVATED, CALL LIGHT IN REACH. ENDORSED TO NIGHT RN FOR DORITA
[2018-09-09 20:00] VITALS: BP 129/56
[2018-09-09] MEDS: TRAMADOL HCL 50 MG TABLET GT PRN (23:31)
--- NOTE | 2018-09-09 23:31 | NUR ---
rn ms notes per request give tramadol for pain management when wound care provided.patient repositioned noted facial grimacing, will give tramadol now prn as ordered and wait [id number] ,will provide wound care prn when pain medication effective. vs wnl.
--- NOTE | 2018-09-10 01:31 | NUR ---
rn ms notes hospitalist aware,new order noted and carried out to renew right hand mitten restraint , patient removes medical tubing. skin assess skin wnl intact, pulses palpable. per request for mitten to be in place as well.
--- NOTE | 2018-09-10 02:37 | NUR ---
RT NOTE WATER CHANGED.
[2018-09-10] MEDS: BLOOD SUGAR DIAGNOSTIC 1 EACH STRIP IN SCH ×3 (05:39→17:12)
[2018-09-10] MEDS: INSULIN REGULAR, HUMAN 100 UNIT/ML 3 ML VIAL SQ PRN ×3 (05:39→17:20)
[2018-09-10 06:33] LABS: BASOPHILS # (AUTO) 0.1 /CMM (0.0-0.2); BASOPHILS % (AUTO) 0.4 % (0.0-2.0); EOSINOPHILS % (AUTO) 2.5 % (0.0-6.0); HEMATOCRIT 27 % (39-51); HEMOGLOBIN 9.3 g/dL (13.5-17.5); LYMPHOCYTES # (AUTO) 1.1 /CMM (0.8-4.8); LYMPHOCYTES % (AUTO) 8.5 % (20.0-44.0); MEAN CORPUSCULAR HGB CONC 35 g/dl (31.0-36.0); MEAN CORPUSCULAR VOLUME 92 fL (80-96); MONOCYTES # (AUTO) 0.8 /CMM (0.1-1.30); MONOCYTES % (AUTO) 6.3 % (2.0-12.0); NEUTROPHILS % (AUTO) 82.3 % (43.0-81.0); PLATELET COUNT (AUTO) 272 /CMM (150-450); RED BLOOD CELL COUNT(AUTO) 2.93 MIL/uL (4.5-6.0); WHITE BLOOD COUNT (AUTO) 13.4 K/uL (4.3-11.0)
[2018-09-10 06:34] LABS: CALCIUM, SERUM 9.2 mg/dL (8.5-10.1); CARBON DIOXIDE 27 mmol/L (21-32); CHLORIDE 105 mmol/L (98-107); CREATININE 2.8 mg/dL (0.6-1.3); GLUCOSE 169 mg/dL (74-106); POTASSIUM 3.9 mmol/L (3.5-5.1); SODIUM SERUM 142 mmol/L (136-145); UREA NITROGEN, BLOOD 65 mg/dL (7-18)
--- NOTE | 2018-09-10 06:40 | NUR ---
RN MS CLOSING NOTES PATIENT IN BED AWAKE ALERT AND ORIENTED X1, NON VERBAL, ON T PIECE COOL AEROSOL, 5LITERS, 28% FIO2, 02 TOLERATING WELL. NO SOB PRESENT, SUCTION EQUIPMENT IN PLACE, ON TELE MONITORING SR 74 HEAD OF BED ELEVATED FOR ASPIRATION PRECAUTIONS, ORAL CARE PROVIDED, SUCTION PRN PROVIDED ,GTUBE INTACT AND PATENT, RESIDUAL 5-10CC. TOLERATING FEEDING WELL, GTUBE FLOWED FOR X16 HRS ORDERED OFF AT 0000 PATIENT REPOSITIONED AND OFFLOADED TO SIDES FOR WOUND CARE MANAGEMENT, PROVIDED WOUND CARE PRN X 2 DURING SHIFT, IV SITE TO LEFT WRIST #18 G SL NO REDNESS, NO INFILTRATION PRESENT, IV SITE TO LEFT FA #20G INTACT AND PATENT SL NO REDNESS, NO INFILTRATION, RIGHT CW DIALYSIS CATH, INTACT DRESSING IS CLEAN AND DRY. SPECIALTY MATTRESS INTACT AND PROPERLY FLOWING, RIGHT HAND MITTEN RESTRAINT IN PLACE, SKIN ASSESSED FOR CIRCULATION , WNL, SKIN COLOR, WNL, PULSES PALPABLE, CALL LIGHT KEPT WITHIN REACH ALL NEEDS ATTENDED AT THIS TIME, REPOSITION Q 2 HRS THROUGHOUT SHIFT AND FLOATED HEELS AND ELBOW, ATTENDED TO NEEDS, REMAINS COMFORTABLE AT THIS TIME, CARDOSO CATHETER INTACT AND DRAINING WELL, WITH PROPER ALIGNMENT KEPT CLEAN, URINE NOTED ANDI COLOR AT THIS TIME. F/C OUTPUT 300CC. WILL CONTINUE TO MONITOR AND ENDORSE TO NEXT SHIFT.
[2018-09-10] MEDS: NEPRO 1,000 ML BOTTLE GT PRN (06:59)
--- NOTE | 2018-09-10 07:41 | NUR ---
MS RN OPENING NOTES RECEIVED PATIENT IN BED ASLEEP, AROUSABLE TO VERBAL AND TACTILE STIMULI. NON- VERBAL. HOB ELEVATED. CURRENTLY RECEIVING HD TREATMENT AT THIS TIME, KEI WELL. RUCW MIGDALIA CATH INTACT WITHOUT S/S OF COMPLICATIONS. BED IN LOWEST POSITION.
[2018-09-10 08:00] VITALS: BP 143/75
[2018-09-10] MEDS: BUDESONIDE RESPULE INH 0.25 MG/2 ML AMPUL.NEB NEB SCH ×2 (08:55→19:16)
[2018-09-10] MEDS: AMIODARONE HCL 200 MG TABLET GT SCH (09:00)
[2018-09-10] MEDS: DOCUSATE SODIUM LIQ 100 MG/10 ML UDC GT SCH (09:00)
[2018-09-10] MEDS: MEROPENEM 500 MG in IV NS 0.9% 50 ML IV SCH ×2 (09:00→21:31)
[2018-09-10] MEDS: ASPIRIN 81 MG TAB.CHEW GT SCH (09:00)
[2018-09-10] MEDS: VIT B CMPLX 3/FA/VIT C/BIOTIN 1 TAB TABLET GT SCH (09:00)
[2018-09-10] MEDS: METOPROLOL TARTRATE 25 MG TABLET GT SCH ×2 (09:00→17:11)
[2018-09-10] MEDS: DAKINS QUARTER STRENGTH (0.125%) 480 ML BOTTLE TOP SCH (09:00)
[2018-09-10] MEDS: CHLORHEXIDINE GLUCONATE 15 ML UDC MM SCH ×2 (09:00→17:09)
[2018-09-10] MEDS: HEPARIN SODIUM, PORCINE 5000 UNITS/1 ML VIAL SQ SCH ×2 (09:00→21:32)
--- NOTE | 2018-09-10 09:00 | NUR ---
MS RN NOTES UNABLE TO SCAN LABEL OF DAKIN'S SOLUTION, DAKIN'S SOLUTION GIVEN FOR WOUND TREATMENT
--- NOTE | 2018-09-10 10:00 | NUR ---
RING SORTER NOTES HELD ALL 9AM MEDS, PATIENT STILL RECEIVING HD TREATMENT.
--- NOTE | 2018-09-10 10:16 | NUR ---
WOUND CARE CONSULT WOUND CARE RECEIVED CONSULT FOR SACRAL DECUBITUS. WOUND CARE WILL DEFER CONSULT AND TREATMENT PLANS TO PLASTIC SURGICAL TEAM WHO ARE CURRENTLY FOLLOWING THIS PATIENT. PATIENT WITH LILLIE AT 12, ALL PRESSURE ULCER PREVENTION MEASURES ARE NOTED TO BE IN PLACE. WILL SEE PRN.
[2018-09-10] MEDS ORDERED: Z GUARD REMEDY 2 OZ OINT TP PRN (10:30)
[2018-09-10] MEDS: Z GUARD REMEDY 2 OZ OINT TP SCH (10:30)
--- NOTE | 2018-09-10 10:30 | NUR ---
MS RN NOTES AWAITING FOR Z-GUARD FROM PHARMACY. PHARMACY JEFF MADE AWARE AND ALSO FOR NEW MARILYN'S SOLUTION
[2018-09-10] MEDS: HYDROGEL DRESSING 90 GM TUBE TP SCH ×2 (10:35→21:33)
--- NOTE | 2018-09-10 10:40 | NUR ---
SUPERVISORY AIR INTERCEPT CONTROLLER NOTES PATIENT COMPLETED HD TREATMENT WITH 1.6 L OUTPUT PER HD NURSE BRIA. B/P 129/63, P: 88 POST HD. RIGHT UPPER CHEST MIGDALIA CATHETER DRESSING CHANGED BY HD NURSE INTACT AND PATENT. REMAINS STABLE AT THIS TIME. IN NO APPARENT DISTRESS AT THIS TIME. RIGHT HAND MITTEN RELEASED AND CHECKED FOR SKIN INTEGRITY AND CIRCULATION. AT BEDSIDE. BED IN LOWEST POSITION. BED ALARM ON. REMAIN ON LUCIANO MATTRESS. CALL LIGHT WITHIN REACH.
[2018-09-10 12:00] VITALS: BP 123/60
[2018-09-10] MEDS ORDERED: EPOETIN ALFA (10,000 UNIT) 10,000 UNIT/ML VIAL IV ONE (12:30)
[2018-09-10] MEDS: TRAMADOL HCL 50 MG TABLET GT PRN (14:11)
[2018-09-10 16:00] VITALS: BP 131/66
--- NOTE | 2018-09-10 18:54 | NUR ---
LATIN DANCER CLOSING NOTES NOTES PATIENT IN BED ASLEEP, AROUSABLE TO VERBAL AND TACTILE STIMULI. NON- VERBAL. HOB ELEVATED. AT BEDSIDE. REMAIN ON TRACH MASK WITH FIO2 OF 28% SUCTIONED PATIENT AND OBTAINED SMALL AMOUNT OF SECRETION PALE YELLOW IN COLOR. ORAL CARE DONE. PORTEX #7 INTACT. RIGHT UPPER CHEST WALL MIGDALIA CATH INTACT WITHOUT S/S OF COMPLICATIONS. BED IN LOWEST POSITION. NOTED PATIENT WITH EPISODE OF SCRATCHING AND GRABBING STAFF WHILE RENDERING CARE. GT INTACT AND PATENT WITH ON GOING NEPRO @65ML/HR. NO RESIDUAL OBSERVED DURING THE SHIFT. BED IN LOWEST POSITION. BED ALARM ON. BED SIDERAILS UP X2 ENDORSED TO NEXT SHIFT
--- NOTE | 2018-09-10 19:05 | NUR ---
RN MS OPENING NOTES RECEIVED PATIENT IN BED AWAKE ALERT AND ORIENTED X1, NON VERBAL, ON T PIECE COOL AEROSOL, 5LITERS, 28% FIO2, 02 TOLERATING WELL. NO SOB PRESENT, SUCTION EQUIPMENT IN PLACE, ON TELE MONITORING SR 74 HEAD OF BED ELEVATED FOR ASPIRATION PRECAUTIONS, ORAL CARE PROVIDED,GTUBE INTACT AND PATENT, RESIDUAL 5-10CC. TOLERATING FEEDING WELL, GTUBE TO FLOW FOR X16 HRS ORDERED WILL TURN OFF AT 2300 PATIENT REPOSITIONED AND OFFLOADED TO SIDES FOR WOUND CARE MANAGEMENT, HEELS OFFLOADED ELBOWS OFFLOADED IV SITE TO LEFT WRIST #18 G SL NO REDNESS, NO INFILTRATION PRESENT, IV SITE TO LEFT FA #20G INTACT AND PATENT SL NO REDNESS, NO INFILTRATION, RIGHT CW DIALYSIS CATH, INTACT DRESSING IS CLEAN AND DRY. SPECIALTY MATTRESS INTACT AND PROPERLY FLOWING, RIGHT HAND MITTEN RESTRAINT REMOVED FAMILY AT BEDSIDE AT THIS TIME. SKIN ASSESSED FOR CIRCULATION , WNL, SKIN COLOR, WNL, PULSES PALPABLE, CALL LIGHT KEPT WITHIN REACH ALL NEEDS ATTENDED AT THIS TIME, REMAINS COMFORTABLE AT THIS TIME, CARDOSO CATHETER INTACT AND DRAINING WELL, WITH PROPER ALIGNMENT KEPT CLEAN, URINE NOTED ANDI COLOR AT THIS TIME.WILL CONTINUE TO MONITOR .
[2018-09-10 20:00] VITALS: BP 132/60
--- NOTE | 2018-09-10 22:00 | NUR ---
REYNA MS NOTES URINE COLLECTED VIA F/C PORT, CLEAN TECHNIQUE USED. F/C PORT THROUGHLY CLEANSED WITH ALCOHOL, CLEAN NEW SYRINGE USED TO RETRIEVE URINE AND PLACED IN NEW SPECIMEN CUP. PER REPORT PER IF COLLECT URINE FOR ANALYSIS AND CULTURE. Addendum: 09/11/18 at 0340 by MARK DE LA ROSA RN PER INFECTIOUS DISEASE
[2018-09-11] MEDS: BLOOD SUGAR DIAGNOSTIC 1 EACH STRIP IN SCH ×4 (00:36→18:08)
[2018-09-11] MEDS: INSULIN REGULAR, HUMAN 100 UNIT/ML 3 ML VIAL SQ PRN ×3 (00:38→17:56)
[2018-09-11 00:48] LABS: APPEARANCE,URINE CLOUDY (CLEAR); BILIRUBIN,URINE NEGATIVE (NEGATIVE); BLOOD, URINE 2+ Ery/uL (NEGATIVE); COLOR,URINE DARK YELLO (YELLOW); KETONES,URINE TRACE (NEGATIVE); LEUKOCYTE ESTERASE ,URINE 1+ (NEGATIVE); NITRITE, URINE NEGATIVE (NEGATIVE); PH,URINE 5.5 (5.0-8.0); PROTEIN,URINE 3+ mg/dl (NEGATIVE); UGLUCOSE TRACE mg/dL (NEGATIVE); UROBILINOGEN,URINE 0.2 EU/dL (0.2)
[2018-09-11 00:51] LABS: WBC,URINE TOO NUMEROUS TO COUN /HPF (0-3)
[2018-09-11 00:52] LABS: BACTERIA,URINE Moderate /HPF (None Seen); SQUAMOUS EPITHELIAL CELL,UR Rare /HPF (None Seen)
--- NOTE | 2018-09-11 07:00 | NUR ---
RN MS CLOSING NOTES PATIENT IN BED AWAKE ALERT AND ORIENTED X1, NON VERBAL, ON T PIECE COOL AEROSOL, 5LITERS, 28% FIO2, 02 TOLERATING WELL. NO SOB PRESENT, SUCTION EQUIPMENT IN PLACE, ON TELE MONITORING SR 66 HEAD OF BED ELEVATED FOR ASPIRATION PRECAUTIONS, ORAL CARE PROVIDED,GTUBE INTACT AND PATENT, RESIDUAL 5CC. TOLERATING FEEDING WELL, GTUBE TO FLOW FOR X16 HRS ORDERED TURN OFF AT 2300 RESTARTED AT 0700, PATIENT REPOSITIONED AND OFFLOADED TO SIDES FOR WOUND CARE MANAGEMENT Q2 HOURS THROUGHOUT SHIFT, HEELS OFFLOADED, ELBOWS OFFLOADED IV SITE TO LEFT WRIST #18 G SL NO REDNESS, NO INFILTRATION PRESENT, IV SITE TO LEFT FA #20G INTACT AND PATENT SL NO REDNESS, NO INFILTRATION, RIGHT CW DIALYSIS CATH, INTACT DRESSING IS CLEAN AND DRY. SPECIALTY MATTRESS INTACT AND PROPERLY FLOWING, RIGHT HAND MITTEN RESTRAINT IN PLACE. RELEASED THROUGHOUT SHIFT SKIN ASSESSED FOR CIRCULATION , WNL, SKIN COLOR, WNL, PULSES PALPABLE, CALL LIGHT KEPT WITHIN REACH ALL NEEDS ATTENDED AT THIS TIME, REMAINS COMFORTABLE AT THIS TIME, CARDOSO CATHETER INTACT AND DRAINING WELL, WITH PROPER ALIGNMENT KEPT CLEAN, URINE NOTED ANDI COLOR AT THIS TIME.WILL CONTINUE TO MONITOR AND ENDORSE TO NEXT SHIFT. AWAITING URINE CULTURE RESULTS , WILL ENDORSE TO F/UP WITH ID REGARDING UA. NO FURTHER ORDERS FROM MD AT THIS TIME.
[2018-09-11 07:15] LABS: BASOPHILS # (AUTO) 0.1 /CMM (0.0-0.2); BASOPHILS % (AUTO) 0.5 % (0.0-2.0); EOSINOPHILS % (AUTO) 3.2 % (0.0-6.0); HEMATOCRIT 28 % (39-51); LYMPHOCYTES # (AUTO) 1.2 /CMM (0.8-4.8); LYMPHOCYTES % (AUTO) 9.8 % (20.0-44.0); MEAN CORPUSCULAR HGB CONC 32 g/dl (31.0-36.0); MEAN CORPUSCULAR VOLUME 91 fL (80-96); MONOCYTES # (AUTO) 0.8 /CMM (0.1-1.30); MONOCYTES % (AUTO) 6.9 % (2.0-12.0); NEUTROPHILS # (AUTO) 9.5 /CMM (1.8-8.9); NEUTROPHILS % (AUTO) 79.6 % (43.0-81.0); PLATELET COUNT (AUTO) 284 /CMM (150-450); RED BLOOD CELL COUNT(AUTO) 3.05 MIL/uL (4.5-6.0); WHITE BLOOD COUNT (AUTO) 11.9 K/uL (4.3-11.0)
[2018-09-11 07:45] LABS: ALANINE AMINOTRANSFERASE 25 U/L (12-78); ALBUMIN 1.7 g/dL (3.4-5.0); ALKALINE PHOSPHATASE 111 U/L (46-116); ASPARTATE AMINOTRANSFERASE 19 U/L (15-37); BILIRUBIN,TOTAL 0.3 mg/dL (0.2-1.0); CARBON DIOXIDE 29 mmol/L (21-32); CHLORIDE 102 mmol/L (98-107); CREATININE 2.4 mg/dL (0.6-1.3); GLUCOSE 168 mg/dL (74-106); MAGNESIUM 2.1 mg/dL (1.8-2.4); PHOSPHORUS 2.9 mg/dL (2.5-4.9); POTASSIUM 3.7 mmol/L (3.5-5.1); SODIUM SERUM 140 mmol/L (136-145); TOTAL PROTEIN, SERUM 7.1 g/dL (6.4-8.2); UREA NITROGEN, BLOOD 46 mg/dL (7-18)
[2018-09-11 08:00] VITALS: BP 133/62
[2018-09-11] MEDS: BUDESONIDE RESPULE INH 0.25 MG/2 ML AMPUL.NEB NEB SCH ×2 (08:17→21:29)
[2018-09-11] MEDS: ASPIRIN 81 MG TAB.CHEW GT SCH (09:57)
[2018-09-11] MEDS: CHLORHEXIDINE GLUCONATE 15 ML UDC MM SCH ×2 (09:58→16:19)
[2018-09-11] MEDS: DOCUSATE SODIUM LIQ 100 MG/10 ML UDC GT SCH (09:58)
[2018-09-11] MEDS: AMIODARONE HCL 200 MG TABLET GT SCH (09:58)
[2018-09-11] MEDS: METOPROLOL TARTRATE 25 MG TABLET GT SCH ×2 (09:58→16:19)
[2018-09-11] MEDS: VIT B CMPLX 3/FA/VIT C/BIOTIN 1 TAB TABLET GT SCH (09:58)
[2018-09-11] MEDS: HEPARIN SODIUM, PORCINE 5000 UNITS/1 ML VIAL SQ SCH ×2 (09:59→20:38)
[2018-09-11] MEDS: MEROPENEM 500 MG in IV NS 0.9% 50 ML IV SCH ×2 (10:00→20:35)
[2018-09-11] MEDS: DAKINS QUARTER STRENGTH (0.125%) 480 ML BOTTLE TOP SCH (11:46)
[2018-09-11] MEDS: TRAMADOL HCL 50 MG TABLET GT PRN (11:46)
[2018-09-11] MEDS: Z GUARD REMEDY 2 OZ OINT TP SCH (11:46)
[2018-09-11] MEDS: HYDROGEL DRESSING 90 GM TUBE TP SCH ×2 (11:47→20:41)
[2018-09-11 12:00] VITALS: BP 153/75
[2018-09-11] MEDS: ACETAMINOPHEN 325 MG TABLET MC PRN (16:19)
--- NOTE | 2018-09-11 19:20 | NUR ---
RECEIVED PATIENT IN BED AWAKE. CONFUSED. UNINTELLIGIBLE SPEECH. NO ACUTE DISTRESS NOTED. NO SIGNS OF PAIN NOTED. IV SITE PATENT, INTACT; FLUSHED. CARDOSO CATH PATENT, INTACT; DRAINING CLEAR YELLOW URINE. SAFETY REMINDERS GIVEN. ON LOW BED WITH BILATERAL UPPER SIDE RAILS UP. CALL LAGUNA WITHIN EASY REACH. WILL CONTINUE TO MONITOR. FAMILY AT BEDSIDE.
--- NOTE | 2018-09-11 19:30 | NUR ---
CONTINUE TO MONITOR
[2018-09-11 20:00] VITALS: BP 145/59
[2018-09-12] VITALS: BP 130/57
[2018-09-12] MEDS: BLOOD SUGAR DIAGNOSTIC 1 EACH STRIP IN SCH ×4 (00:32→17:40)
[2018-09-12] MEDS: INSULIN REGULAR, HUMAN 100 UNIT/ML 3 ML VIAL SQ PRN ×4 (00:34→17:57)
[2018-09-12 04:00] VITALS: BP 138/68
--- NOTE | 2018-09-12 06:00 | NUR ---
PATIENT ASLEEP, EASILY AROUSABLE. RESPIRATIONS EVEN. NO SIGNS OF PAIN NOTED. NO SYMPTOMS OF HYPER/HYPOGLYCEMIA. GT PATENT, INTACT; PATIENT TOLERATED GTF. HOB RAISED. NO RESIDUAL ASPIRATED. DUE MED GIVEN WITH NO ASE NOTED. NEEDS ATTENDED. KEPT CLEAN, DRY, AND COMFORTABLE. SAFETY PRECAUTIONS AND COMFORT MEASURES IN PLACE. WILL GIVE REPORT TO TO DAY SHIFT FOR CONTINUITY OF CARE.
[2018-09-12 06:25] LABS: BASOPHILS % (AUTO) 0.2 % (0.0-2.0); EOSINOPHILS % (AUTO) 2.5 % (0.0-6.0); HEMATOCRIT 30 % (39-51); HEMOGLOBIN 9.5 g/dL (13.5-17.5); LYMPHOCYTES # (AUTO) 1.1 /CMM (0.8-4.8); LYMPHOCYTES % (AUTO) 10.1 % (20.0-44.0); MEAN CORPUSCULAR HGB CONC 32 g/dl (31.0-36.0); MEAN CORPUSCULAR VOLUME 91 fL (80-96); MONOCYTES # (AUTO) 0.6 /CMM (0.1-1.30); MONOCYTES % (AUTO) 5.8 % (2.0-12.0); NEUTROPHILS # (AUTO) 9.1 /CMM (1.8-8.9); NEUTROPHILS % (AUTO) 81.4 % (43.0-81.0); PLATELET COUNT (AUTO) 302 /CMM (150-450); RED BLOOD CELL COUNT(AUTO) 3.23 MIL/uL (4.5-6.0); WHITE BLOOD COUNT (AUTO) 11.2 K/uL (4.3-11.0)
[2018-09-12] MEDS: NEPRO 1,000 ML BOTTLE GT PRN (06:48)
[2018-09-12 06:50] LABS: CALCIUM, SERUM 9.2 mg/dL (8.5-10.1); CARBON DIOXIDE 28 mmol/L (21-32); CHLORIDE 104 mmol/L (98-107); CREATININE 2.6 mg/dL (0.6-1.3); GLUCOSE 195 mg/dL (74-106); POTASSIUM 3.9 mmol/L (3.5-5.1); SODIUM SERUM 144 mmol/L (136-145); UREA NITROGEN, BLOOD 63 mg/dL (7-18)
[2018-09-12 08:00] VITALS: BP 157/69
--- NOTE | 2018-09-12 08:00 | NUR ---
MS/RN - Assessment Patient awake, no s/s of pain, not in any form of distress, on cool aerosol 28% FiO2, trached with Portex 7 secured and intact. Patient with sacral wound extending to left buttock, will do wound treatment as ordered. KCI mattress in place for skin management. All pressure ulcer prevention measures noted to be in place, repositioned per protocol. Patient tolerating TF Nepro at 65 ml/hr, no residual seen. Fall and aspiration precautions maintained. Will continue with current plan of care.
[2018-09-12] MEDS: AMIODARONE HCL 200 MG TABLET GT SCH (08:22)
[2018-09-12] MEDS: VIT B CMPLX 3/FA/VIT C/BIOTIN 1 TAB TABLET GT SCH (08:22)
[2018-09-12] MEDS: ASPIRIN 81 MG TAB.CHEW GT SCH (08:22)
[2018-09-12] MEDS: METOPROLOL TARTRATE 25 MG TABLET GT SCH ×2 (08:22→17:00)
[2018-09-12] MEDS: HEPARIN SODIUM, PORCINE 5000 UNITS/1 ML VIAL SQ SCH ×2 (08:23→21:25)
[2018-09-12] MEDS: DOCUSATE SODIUM LIQ 100 MG/10 ML UDC GT SCH (08:23)
[2018-09-12] MEDS: CHLORHEXIDINE GLUCONATE 15 ML UDC MM SCH ×2 (08:24→17:40)
[2018-09-12] MEDS: BUDESONIDE RESPULE INH 0.25 MG/2 ML AMPUL.NEB NEB SCH ×2 (08:25→20:57)
[2018-09-12] MEDS: MEROPENEM 500 MG in IV NS 0.9% 50 ML IV SCH ×2 (08:35→21:25)
[2018-09-12] MEDS: Z GUARD REMEDY 2 OZ OINT TP SCH (08:36)
[2018-09-12] MEDS: HYDROGEL DRESSING 90 GM TUBE TP SCH ×2 (08:36→21:26)
[2018-09-12] MEDS: DAKINS QUARTER STRENGTH (0.125%) 480 ML BOTTLE TOP SCH (08:36)
--- NOTE | 2018-09-12 09:45 | NUR ---
MS/RN - Notes Wound treatment done as ordered. at bedside updated on plan of care.
[2018-09-12] MEDS: TRAMADOL HCL 50 MG TABLET GT PRN (10:25)
--- NOTE | 2018-09-12 10:45 | NUR ---
MS/RN - Notes Patient's sacral wound noted with no improvement with current treatment. Relayed to EVANGELIST Hernadnez (wound marketing operations consultant) with new wound treatment orders. at bedside made aware.
[2018-09-12] MEDS ORDERED: SILVER NITRATE APPLICATOR 1 EA BOX TP PRN (11:00)
[2018-09-12] MEDS ORDERED: LIDOCAINE 1%-EPI 1:100,000 20 ML VIAL TP ONE (11:00)
--- NOTE | 2018-09-12 14:00 | NUR ---
MS/RN - HD treatment HD treatment ongoing, plan to remove 1 liter if able to tolerate per HD RN. at bedside.
[2018-09-12 16:00] VITALS: BP 107/49
[2018-09-12] MEDS: ACETAMINOPHEN 325 MG TABLET MC PRN (17:40)
--- NOTE | 2018-09-12 18:56 | NUR ---
MS/RN - End of shift summary No significant change in condition seen. Possible wound debridement tomorrow. HD treatment tolerated well, 1 liter out. at bedside. Will continue with current medical management, endorsed to night nurse for continuity of care.
--- NOTE | 2018-09-12 19:30 | NUR ---
RECEIVED PATIENT IN BED AWAKE. CONFUSED. UNINTELLIGIBLE SPEECH. NO ACUTE DISTRESS NOTED. NO SIGNS OF PAIN NOTED. IV SITES PATENT, INTACT; FLUSHED. CARDOSO CATH PATENT, INTACT; DRAINING YELLOW URINE. SAFETY REMINDERS GIVEN. ON LOW BED WITH BILATERAL UPPER SIDE RAILS UP. CALL LAGUNA WITHIN EASY REACH. WILL CONTINUE TO MONITOR. FAMILY AT BEDSIDE.
[2018-09-12 20:00] VITALS: BP 122/61
[2018-09-13] MEDS: BLOOD SUGAR DIAGNOSTIC 1 EACH STRIP IN SCH ×4 (00:24→17:24)
[2018-09-13] MEDS: INSULIN REGULAR, HUMAN 100 UNIT/ML 3 ML VIAL SQ PRN ×4 (00:26→17:27)
--- NOTE | 2018-09-13 06:00 | NUR ---
PATIENT ASLEEP, EASILY AROUSABLE. RESPIRATIONS EVEN. NO SIGNS OF PAIN NOTED. NO SYMPTOMS OF HYPER/HYPOGLYCEMIA. GT PATENT, INTACT; PATIENT TOLERATED GTF. HOB RAISED. NO RESIDUAL ASPIRATED. DUE MEDS GIVEN WITH NO ASE NOTED. NEEDS ATTENDED. KEPT CLEAN, DRY, AND COMFORTABLE. SAFETY PRECAUTIONS AND COMFORT MEASURES IN PLACE. WILL GIVE REPORT TO TO DAY SHIFT FOR CONTINUITY OF CARE.
[2018-09-13] MEDS: NEPRO 1,000 ML BOTTLE GT PRN (06:04)
[2018-09-13 06:23] LABS: BASOPHILS % (AUTO) 0.5 % (0.0-2.0); EOSINOPHILS % (AUTO) 2.3 % (0.0-6.0); HEMATOCRIT 29 % (39-51); HEMOGLOBIN 9.4 g/dL (13.5-17.5); LYMPHOCYTES # (AUTO) 1.1 /CMM (0.8-4.8); MEAN CORPUSCULAR HGB CONC 33 g/dl (31.0-36.0); MEAN CORPUSCULAR VOLUME 92 fL (80-96); MONOCYTES # (AUTO) 0.6 /CMM (0.1-1.30); MONOCYTES % (AUTO) 6.8 % (2.0-12.0); NEUTROPHILS # (AUTO) 7.4 /CMM (1.8-8.9); NEUTROPHILS % (AUTO) 78.4 % (43.0-81.0); PLATELET COUNT (AUTO) 302 /CMM (150-450); RED BLOOD CELL COUNT(AUTO) 3.16 MIL/uL (4.5-6.0); WHITE BLOOD COUNT (AUTO) 9.4 K/uL (4.3-11.0)
[2018-09-13 06:37] LABS: CALCIUM, SERUM 9.7 mg/dL (8.5-10.1); CARBON DIOXIDE 28 mmol/L (21-32); CHLORIDE 104 mmol/L (98-107); CREATININE 2.2 mg/dL (0.6-1.3); GLUCOSE 199 mg/dL (74-106); MAGNESIUM 2.3 mg/dL (1.8-2.4); POTASSIUM 4.2 mmol/L (3.5-5.1); SODIUM SERUM 142 mmol/L (136-145); UREA NITROGEN, BLOOD 48 mg/dL (7-18)
--- NOTE | 2018-09-13 07:19 | NUR ---
RN MS OPENING NOTES Received patient on cool aerosol 28%, no sob noted, no s/s of pain at this time. Patient remains a/o x1. Serrano remains intact and draining, Patient on 65 mL feeding of Nephro, GT feeding. Bilateral mittens applied and is renewed at 0125. Bed at the lowest setting, call light within reach.
[2018-09-13 08:00] VITALS: BP 151/70
[2018-09-13] MEDS: ASPIRIN 81 MG TAB.CHEW GT SCH (08:18)
[2018-09-13] MEDS: DOCUSATE SODIUM LIQ 100 MG/10 ML UDC GT SCH (08:18)
[2018-09-13] MEDS: VIT B CMPLX 3/FA/VIT C/BIOTIN 1 TAB TABLET GT SCH (08:18)
[2018-09-13] MEDS: METOPROLOL TARTRATE 25 MG TABLET GT SCH ×2 (08:19→16:34)
[2018-09-13] MEDS: CHLORHEXIDINE GLUCONATE 15 ML UDC MM SCH ×2 (08:20→16:32)
[2018-09-13] MEDS: AMIODARONE HCL 200 MG TABLET GT SCH (08:20)
[2018-09-13] MEDS: HEPARIN SODIUM, PORCINE 5000 UNITS/1 ML VIAL SQ SCH ×3 (08:21→16:32)
[2018-09-13] MEDS: DAKINS QUARTER STRENGTH (0.125%) 480 ML BOTTLE TOP SCH (08:32)
[2018-09-13] MEDS: Z GUARD REMEDY 2 OZ OINT TP SCH (08:32)
[2018-09-13] MEDS: HYDROGEL DRESSING 90 GM TUBE TP SCH ×2 (08:32→21:33)
[2018-09-13] MEDS: MEROPENEM 500 MG in IV NS 0.9% 50 ML IV SCH ×2 (08:37→21:11)
[2018-09-13] MEDS: BUDESONIDE RESPULE INH 0.25 MG/2 ML AMPUL.NEB NEB SCH ×2 (08:52→20:08)
[2018-09-13 16:00] VITALS: BP 151/66
--- NOTE | 2018-09-13 18:50 | NUR ---
RN MS CLOSING NOTES Patient remains on cool aerosol 28%, portex 7, no sob noted, no s/s of pain at this time. Patient remains with Right hand mitten for safety. feeding remains infusing at 65 mL per hour, to be d/c at 2300. Left wrist 18 and Left fore arm IV remains patent at this time. Repositioned every 2 hours. Bed at the lowest setting, call light within reach, will give report to NOC RN for DORITA bedside.
--- NOTE | 2018-09-13 19:50 | NUR ---
RN NOTES RECEIVED PATIENT, RESTING COMFORTABLY NO SIGNS OF ACUTE RESPIRATORY DISTRESS NOTED, NO RESTLESSNESS NOTED AT THIS TIME, NO FACIAL GRIMACING NOTED, FAMILY MEMBER AT BEDSIDE, REPOSITIONED FOR COMFORT, IV ACCESS INTACT AND PATENT, SAFETY MEASURES INPLACE, BED IN LOW LOCKED POSITION, CALL LIGHT WITHIN EASY REACH. WILL CONTINUE TO MONITOR ACCORDINGLY.
[2018-09-13 20:30] VITALS: BP 140/58
[2018-09-14] MEDS: BLOOD SUGAR DIAGNOSTIC 1 EACH STRIP IN SCH ×4 (00:06→17:39)
[2018-09-14] MEDS: INSULIN REGULAR, HUMAN 100 UNIT/ML 3 ML VIAL SQ PRN ×4 (00:12→17:39)
--- NOTE | 2018-09-14 01:47 | NUR ---
MS/TELE/ ASSUMED CARE FOR CONTINUITY OF CARE. PATIENT APPEAR SLEEPING, APPEAR COMFORTABLE,, NO DISTRESS NOTED, WILL MONITOR.
--- NOTE | 2018-09-14 02:00 | NUR ---
RN NOTES ALL NEEDS ATTENDED AND MET, PATIENT IS RESTING COMFORTABLY AT THIS TIME, NO RESTLESSNESS NOTED, SAFETY MEASURES IN PLACE, ENDORSED TO REYNA ANGEL FOR CONTINUITY OF CARE.
--- NOTE | 2018-09-14 05:17 | NUR ---
MS/TELE/RN MORNING CARE DONE, TOTAL LINEN CHANGE DONE, DRESSING CHANGED DONE PER ORDER, TRACH DRESSING AND GT DRESSING CHANGED, TOLERATED. REPOSITIONED TO COMFORT. WILL CONTINUE TO MONITOR.
--- NOTE | 2018-09-14 06:13 | NUR ---
MS/TELE/RN PATIENT APPEAR SLEEPING AT THIS TIME, APPEAR COMFORTABLE, NO DISTRESS NOTED, ALL NEEDS ATTENDED AT THIS TIME, WILL CONTINUE TO MONITOR.
[2018-09-14 06:51] LABS: BASOPHILS % (AUTO) 0.3 % (0.0-2.0); EOSINOPHILS % (AUTO) 2.5 % (0.0-6.0); HEMATOCRIT 29 % (39-51); HEMOGLOBIN 9.3 g/dL (13.5-17.5); LYMPHOCYTES # (AUTO) 1.1 /CMM (0.8-4.8); LYMPHOCYTES % (AUTO) 12.7 % (20.0-44.0); MEAN CORPUSCULAR HGB CONC 32 g/dl (31.0-36.0); MEAN CORPUSCULAR VOLUME 93 fL (80-96); MONOCYTES # (AUTO) 0.6 /CMM (0.1-1.30); MONOCYTES % (AUTO) 6.2 % (2.0-12.0); NEUTROPHILS % (AUTO) 78.3 % (43.0-81.0); PLATELET COUNT (AUTO) 328 /CMM (150-450); RED BLOOD CELL COUNT(AUTO) 3.14 MIL/uL (4.5-6.0)
[2018-09-14] MEDS: NEPRO 1,000 ML BOTTLE GT PRN (06:51)
[2018-09-14 06:56] LABS: CALCIUM, SERUM 9.7 mg/dL (8.5-10.1); CARBON DIOXIDE 28 mmol/L (21-32); CHLORIDE 105 mmol/L (98-107); CREATININE 2.6 mg/dL (0.6-1.3); GLUCOSE 220 mg/dL (74-106); POTASSIUM 4.6 mmol/L (3.5-5.1); SODIUM SERUM 144 mmol/L (136-145); UREA NITROGEN, BLOOD 62 mg/dL (7-18)
--- NOTE | 2018-09-14 07:23 | NUR ---
RN OPENING NOTE PT WAS RECEIVED IN BED AT LOWEST AND LOCKED POSITION WITH SIDE RAILS UPX2, NOTED TO BE AWAKE AND NONVERBAL BREATHING EVEN AND UNLABORED ON T-COLLAR WITH COOL MIST, NO S/S OF ANY DISTRESS OR PAIN NOTED AT THIS TIME, IV IS PATENT AND INTACT, NOTED TO HAVE RIGHT CHEST WALL HD CATH WITH PLANS FOR HD TODAY PER NIGHT RN, NOTED TO HAVE STAGE 4 PRESSURE ULCER, GTUBE IN PLACE WITH FEEDING RUNNING, SAFETY PRECAUTIONS IN PLACE, CALL LIGHT WITHIN REACH, WILL MONITOR PT ACCORDINGLY
[2018-09-14] MEDS: BUDESONIDE RESPULE INH 0.25 MG/2 ML AMPUL.NEB NEB SCH (07:49)
[2018-09-14 08:11] VITALS: BP 137/68
[2018-09-14] MEDS: VIT B CMPLX 3/FA/VIT C/BIOTIN 1 TAB TABLET GT SCH (08:59)
[2018-09-14] MEDS: CHLORHEXIDINE GLUCONATE 15 ML UDC MM SCH ×2 (08:59→16:36)
[2018-09-14] MEDS: ASPIRIN 81 MG TAB.CHEW GT SCH (08:59)
[2018-09-14] MEDS: DOCUSATE SODIUM LIQ 100 MG/10 ML UDC GT SCH (08:59)
[2018-09-14] MEDS: METOPROLOL TARTRATE 25 MG TABLET GT SCH ×2 (09:00→16:36)
[2018-09-14] MEDS: AMIODARONE HCL 200 MG TABLET GT SCH (09:00)
[2018-09-14] MEDS: MEROPENEM 500 MG in IV NS 0.9% 50 ML IV SCH (09:00)
[2018-09-14] MEDS: HEPARIN SODIUM, PORCINE 5000 UNITS/1 ML VIAL SQ SCH ×3 (09:04→16:36)
[2018-09-14] MEDS: DAKINS QUARTER STRENGTH (0.125%) 480 ML BOTTLE TOP SCH (09:06)
[2018-09-14] MEDS: HYDROGEL DRESSING 90 GM TUBE TP SCH (09:06)
[2018-09-14] MEDS: Z GUARD REMEDY 2 OZ OINT TP SCH (09:06)
[2018-09-14] MEDS ORDERED: HEPARIN SODIUM, PORCINE 1,000 UNIT/ML VIAL IV ONE (13:00)
--- NOTE | 2018-09-14 13:13 | NUR ---
RN NOTE PER DR.LEE LUNSFORD TO USE HEPARIN ONE TIME FOR HEMODIALYSIS, HD NURSE TAZ CHOU. WILL CARRY OUT ORDER DIRECTED.
[2018-09-14] MEDS: TRAMADOL HCL 50 MG TABLET GT PRN (13:32)
[2018-09-14 16:00] VITALS: BP 122/71
--- NOTE | 2018-09-14 16:01 | NUR ---
RN NOTE REPORT GIVEN TO ANDREA AT [facility] AT THIS TIME.
[2018-09-14] MEDS ORDERED: MERO500V3 IV (16:05)
[2018-09-14 16:36] VITALS: BP 102/63
--- NOTE | 2018-09-14 18:25 | NUR ---
DISCHARGE NOTE PT WAS D/C AT THIS TIME IN MEDICALLY STABLE CONDITION BACK TO [facility] WITH REPORT GIVEN TO ANDREA AT THE FACILITY. ALL D/C PAPERWORK, EXITCARE, AND BELONGING LIST WERE SIGNED, DISCUSSED, AND HANDED TO THE PATIENT AND EMT CREW. PHOTOS OF WOUND WERE TAKEN AND PLACED AND IN THE CHART. PT LEFT WITH CARDOSO IN PLACE. PT LEFT WITH IV DUE TO PLAN TO CONTINUE ABX AT THE FACILITY. WOUND CARE WAS DONE ON STAGE 4 PRESSURE ULCER BEFORE D/C. GTUBE INTACT AND IN PLACE. ID BAND WAS REMOVED. ALL NEEDS WERE ATTENDED TO DURING HIS STAY. PT LEFT WITH EMT CREW AT THIS TIME IN STABLE CONDITION.
== END 2018-09-14 18:25 | DRG 853 ==
LOC: ER 15:12 → TELE 17:51 → MED 09-07 09:50
PROVIDERS: ADMIT Nurse Practitioner Acute Care; ATTEND Hospitalist
PROC: 5A1D70Z Performance of Urinary Filtration, Intermittent, Less than 6 Hours Per Day (ICD-10-PCS; 2018-09-07)
PROC: 30233N1 Transfusion of Nonautologous Red Blood Cells into Peripheral Vein, Percutaneous Approach (ICD-10-PCS; 2018-09-08)
PROC: 0KBP0ZZ Excision of Left Hip Muscle, Open Approach (ICD-10-PCS; principal; 2018-09-09)
PROC: 0QB10ZZ Excision of Sacrum, Open Approach (ICD-10-PCS; 2018-09-13)
PROC: 0QB30ZZ Excision of Left Pelvic Bone, Open Approach (ICD-10-PCS; 2018-09-13)
DX: A41.9 Sepsis, unspecified organism (principal); L89.154 Pressure ulcer of sacral region, stage 4; E43 Unspecified severe protein-calorie malnutrition; G92 Toxic encephalopathy; I21.A1 Myocardial infarction type 2; L89.324 Pressure ulcer of left buttock, stage 4; J96.20 Acute and chronic respiratory failure, unspecified whether with hypoxia or hypercapnia; N18.6 End stage renal disease; R65.21 Severe sepsis with septic shock; J18.9 Pneumonia, unspecified organism; D68.59 Other primary thrombophilia; I13.2 Hypertensive heart and chronic kidney disease with heart failure and with stage 5 chronic kidney disease, or end stage renal disease; Z99.11 Dependence on respirator [ventilator] status; E87.2 Acidosis; I69.354 Hemiplegia and hemiparesis following cerebral infarction affecting left non-dominant side; I50.9 Heart failure, unspecified; E03.9 Hypothyroidism, unspecified; E83.39 Other disorders of phosphorus metabolism; E11.22 Type 2 diabetes mellitus with diabetic chronic kidney disease; D63.8 Anemia in other chronic diseases classified elsewhere; K21.9 Gastro-esophageal reflux disease without esophagitis; Z99.2 Dependence on renal dialysis; Z86.74 Personal history of sudden cardiac arrest; Z93.0 Tracheostomy status; Z93.1 Gastrostomy status; Z95.1 Presence of aortocoronary bypass graft; I95.9 Hypotension, unspecified; R13.10 Dysphagia, unspecified; E88.09 Other disorders of plasma-protein metabolism, not elsewhere classified; M62.50 Muscle wasting and atrophy, not elsewhere classified, unspecified site; Z68.22 Body mass index [BMI] 22.0-22.9, adult; E11.65 Type 2 diabetes mellitus with hyperglycemia; R33.9 Retention of urine, unspecified; Z79.4 Long term (current) use of insulin; I25.10 Atherosclerotic heart disease of native coronary artery without angina pectoris; J44.9 Chronic obstructive pulmonary disease, unspecified
CPT/HCPCS: 31720; 36415; 36600; 71045-TC; 80048-TC; 80053-TC; 80061-TC; 80076-TC; 80202-TC; 81000-TC; 82728-TC; 82803-TC; 82962-TC; 83540-TC; 83605-TC; 83735-TC; 84100-TC; 84439-TC; 84443-TC; 84484-TC; 85025-TC; 85730-TC; 86706; 86850-TC; 86921-TC; 87040-TC; 87081-TC; 87086-TC; 87340; 90935-TC; 92507-TC; 92521; 93307-TC; 94640-TC; 94760-TC; 94799-TC; A4216; A4623; A6248; A6253; A6403; A7526; G0378; J0885; J1644; J1815; J2185; J2270; J2543; J3370; J3490; J7030; J7040; J7050; J7060; L8501; P9016-BL

== ENCOUNTER 2018-11-07 18:46 | Inpatient (IN) | payer MEDICARE, OTHER ==
[~2018-11-07] VITALS: Ht 170.2 cm; Wt 71.7 kg
[~2018-11-07 18:46] MED LIST changes: +ACET650S26 GT; +AMIO200T4 GT; +ASPI-1169 GT; +ATOR10TA GT; +BISA10SU11 RC; +BUDE0.5A4 IH; +CHLO473M5 MM; +CLON0.1T GT; +DOCU50LI GT; +FOLI0.8T23 GT; +INSU100V39 SQ; +IPRA3AMP23 IH; +LANS30CA54 GT; +LIDO30CR47 TP; +MERO500V3 IV; +METO25TA20 GT; +METO5SOL2 GT; +NPH,100V SQ; +OMEG1CAP GT; +ONDA4TAB5 GT; -PIPERACILLIN /TAZOBACTAM 2.25 G in IV D5W 50 ML IV SCH; +POLY17PO4 GT; +SEVE0.8P GT; +TRAM50TA2 GT; +VIT500LI GT; +[UNRECOGNIZED DRUG - CODE] TD
[2018-11-07] MEDS ORDERED: LEVO25TA7 GT (19:03)
[2018-11-07] MEDS ORDERED: ERYT200S16 PO (19:03)
[2018-11-07] MEDS ORDERED: INSU100V39 SQ (19:03)
[2018-11-07] MEDS ORDERED: LOPE2CAP40 PO (19:03)
[2018-11-07] MEDS ORDERED: PROT946L PO (19:03)
[2018-11-07] MEDS ORDERED: INSU100I26 SQ (19:03)
[2018-11-07] MEDS ORDERED: ONDANSETRON HCL/PF 4 MG/2 ML VIAL IVP ONE (19:30)
[2018-11-07] MEDS ORDERED: IV NS 0.9% 500 ML BAG IV ONE (19:30)
--- NOTE | 2018-11-07 19:30 | NUR ---
PT BIBRA AMWEST 39 FOR VOMITING x 2 DURING DIALYSIS, ALSO AMS. FINISHED 1.5HRS OUT OF 3HRS DIALYSIS. PT NONVERBAL. PT ON MONITOR IN BED 4. FEBRILE. PT HAS R CHEST WALL ACCESS FOR DIALYSIS. WALKER AND Giovany BAZAN G TUBE FROM FACILITY. PT ON MONITOR IN BED 4 WITH FAMILY AT BEDSIDE.
[2018-11-07] MEDS ORDERED: ONDANSETRON HCL/PF 4 MG/2 ML VIAL ONE (19:50)
[2018-11-07 20:02] LABS: BASOPHILS % (AUTO) 0.1 % (0.0-2.0); EOSINOPHILS % (AUTO) 0.1 % (0.0-6.0); HEMATOCRIT 37 % (39-51); LYMPHOCYTES # (AUTO) 0.3 /CMM (0.8-4.8); LYMPHOCYTES % (AUTO) 1.3 % (20.0-44.0); MEAN CORPUSCULAR HGB CONC 32 g/dl (31.0-36.0); MEAN CORPUSCULAR VOLUME 96 fL (80-96); MONOCYTES # (AUTO) 0.8 /CMM (0.1-1.30); MONOCYTES % (AUTO) 4.2 % (2.0-12.0); NEUTROPHILS # (AUTO) 17.9 /CMM (1.8-8.9); NEUTROPHILS % (AUTO) 94.3 % (43.0-81.0); PLATELET COUNT (AUTO) 206 /CMM (150-450); RED BLOOD CELL COUNT(AUTO) 3.87 MIL/uL (4.5-6.0); WHITE BLOOD COUNT (AUTO) 18.9 K/uL (4.3-11.0)
[2018-11-07 20:24] LABS: CALCIUM, SERUM 9.8 mg/dL (8.5-10.1); CARBON DIOXIDE 17 mmol/L (21-32); CHLORIDE 95 mmol/L (98-107); CREATININE 3.4 mg/dL (0.6-1.3); GLUCOSE 315 mg/dL (74-106); POTASSIUM 3.8 mmol/L (3.5-5.1); SODIUM SERUM 132 mmol/L (136-145); UREA NITROGEN, BLOOD 72 mg/dL (7-18)
[2018-11-07] MEDS ORDERED: ACETAMINOPHEN 120 MG/SUPP.RECT RC ONE (20:27)
[2018-11-07 20:28] LABS: ALANINE AMINOTRANSFERASE 16 U/L (12-78); ALBUMIN 2.7 g/dL (3.4-5.0); ALKALINE PHOSPHATASE 94 U/L (46-116); ASPARTATE AMINOTRANSFERASE 18 U/L (15-37); BILIRUBIN,DIRECT 0.2 mg/dL (0.0-0.2); BILIRUBIN,TOTAL 0.6 mg/dL (0.2-1.0); TOTAL PROTEIN, SERUM 8.3 g/dL (6.4-8.2)
[2018-11-07] MEDS ORDERED: ACETAMINOPHEN 650 MG/SUPP.RECT RC ONE (20:30)
--- NOTE | 2018-11-07 20:55 | NUR ---
URINE COLLECTED AND SENT TO LAB
[2018-11-07] MEDS ORDERED: HYDROCODONE/APAP 5/325MG 1 EACH TABLET PO PRN (21:00)
[2018-11-07] MEDS ORDERED: MAGNESIUM HYDROXIDE 30 ML UDC PO PRN (21:00)
[2018-11-07] MEDS ORDERED: DEXTROSE 50%-WATER 50 ML DISP.SYRIN IV PRN (21:00)
[2018-11-07] MEDS ORDERED: TRAMADOL HCL 50 MG TABLET GT PRN (21:00)
[2018-11-07] MEDS ORDERED: BISACODYL SUPP (10 MG) 10 MG/SUPP.RECT SUPP.RECT RC PRN (21:00)
[2018-11-07] MEDS ORDERED: MAG HYDROX/AL HYDROX/SIMETH 30 ML UDC PO PRN (21:00)
[2018-11-07] MEDS ORDERED: CLONIDINE HCL 0.1 MG TABLET GT PRN (21:00)
[2018-11-07] MEDS ORDERED: ACETAMINOPHEN 325 MG TABLET PO PRN (21:00)
[2018-11-07] MEDS ORDERED: Z GUARD REMEDY 2 OZ OINT TP PRN (21:00)
[2018-11-07] MEDS ORDERED: ONDANSETRON HCL/PF 4 MG/2 ML VIAL IVP PRN (21:00)
[2018-11-07] MEDS ORDERED: METOCLOPRAMIDE HCL 10 MG/10 ML UDC GT PRN (21:00)
[2018-11-07 21:07] LABS: APPEARANCE,URINE Slightly Cloudy (CLEAR); BILIRUBIN,URINE SMALL (NEGATIVE); BLOOD, URINE Large Ery/uL (NEGATIVE); COLOR,URINE Amber (YELLOW); KETONES,URINE Trace (NEGATIVE); LEUKOCYTE ESTERASE ,URINE Large (NEGATIVE); NITRITE, URINE Negative (NEGATIVE); PROTEIN,URINE >=300 mg/dl (NEGATIVE); UGLUCOSE Negative (NEGATIVE); UROBILINOGEN,URINE 0.2 EU/dL (0.2)
[2018-11-07 21:18] LABS: BACTERIA,URINE 3+ /HPF (None Seen); RBC,URINE 81-100 /HPF (0-2); SQUAMOUS EPITHELIAL CELL,UR Few /HPF (None Seen); WBC,URINE TOO NUMEROUS TO COUN /HPF (0-3)
[2018-11-07] MEDS ORDERED: PIPERACILLIN /TAZOBACTAM 3.375 G VIAL IV ONE (21:28)
[2018-11-07] MEDS ORDERED: PIPERACILLIN /TAZOBACTAM 3.375 G in IV D5W 50 ML IV ONE (21:30)
--- NOTE | 2018-11-07 21:45 | NUR ---
BED 102
--- NOTE | 2018-11-07 21:45 | NUR ---
REPORT GIVEN TO REYNA LARIOS FOR DORITA
[2018-11-07 22:05] VITALS: BP 77/32
--- NOTE | 2018-11-07 22:05 | NUR ---
[facility] RN NOTES ADMITTED A 78YRS OLD MALE NON VERBAL ON A TRACHEOSTOMY ADMITTED FOR SEPSIS. ADMISSION ROUTINE CARE RENDERED VITAL SIGNS BP 77/32, HR 82, RR 20, O2 99%, TEMP 98.9. FAMILY AT BEDSIDE. HEAD TO TOE ASSESSMENT NOTED WITH SACRAL PRESSURE SORE TREATMENT DONE. PAGED DR MARCOS RELATING TO LOW BP WITH ORDER TO TRANSFER TO ICU FOR FARTHER MANAGEMENT. FAMILY AWARE OF TRANSFER. PICC LINE ORDERED. PATIENT ON COOL AEROSOL ON 28% SAT 99%.
--- NOTE | 2018-11-07 22:17 | NUR ---
PLACED PT ON COOL AEROSOL 28% 5L
[2018-11-07] MEDS ORDERED: VANCOMYCIN 1 GM in IV D5W 250ml IV SCH (23:00)
[2018-11-07] MEDS ORDERED: NOREPINEPHRINE 16 MG in IV D5W 500 ML IV PRN ×4 (23:00)
--- NOTE | 2018-11-07 23:10 | NUR ---
[facility] RN NOTES TRANSFER PATIENT TO ICU BY ACLS. REPORT GIVEN TO REYNA GARCIA
[2018-11-07] MEDS ORDERED: NOREPINEPHRINE 4 MG/4 ML AMPUL IV ONE (23:11)
--- NOTE | 2018-11-07 23:15 | NUR ---
Received patient transferred in from [facility] via bed for hypotension SBP's 70's-80's.DX:SEPSIS,AMS. Patient lethargic,non verbal with cool aerosol via trach 28%.Respiration even and unlabored. Afib controlled HR 70's-80's.Levophed gtt to be started awaiting PICC LINE insertion.GT clamped. FC to gravity dark cloudy urine.FC bag changed.Turned and repositioned.
[2018-11-07 23:30] VITALS: BP_SYST 83; BP_DIAS 41; BP_DIAS 47
[2018-11-07 23:45] VITALS: BP 74/42
--- NOTE | 2018-11-07 23:50 | NUR ---
PICC LINE inserted.Remains hemodynamically unstable.Levophed gtt started and will titrate accordingly.
[2018-11-08] VITALS (78 sets, daily range): BP systolic 72–150; BP diastolic 33–73
[2018-11-08] MEDS: ATORVASTATIN 10 MG TABLET GT SCH ×2 (00:08→21:04)
[2018-11-08] MEDS ORDERED: INSULIN REGULAR, HUMAN 100 UNIT/ML 3 ML VIAL ONE (00:34)
[2018-11-08] MEDS: BLOOD SUGAR DIAGNOSTIC 1 EACH STRIP VI SCH ×5 (00:45→21:44)
[2018-11-08] MEDS: *INSULIN REGULAR(HUMULIN R)HUM 100 UNIT/ML VIAL SQ PRN ×3 (00:45→21:44)
[2018-11-08] MEDS ORDERED: Medication Not On Formulary EA (Ipratropium/Albuterol Sulfate (Duoneb 2.5-0.5 Mg/3 Ml So IH SCH (01:30)
[2018-11-08] MEDS ORDERED: VANCOMYCIN 1 GM in IV D5W 250 ML IV SCH (01:30)
[2018-11-08] MEDS ORDERED: VANCOMYCIN 1 GM VIAL ONE (03:34)
[2018-11-08 04:10] LABS: BASOPHILS % (AUTO) 0.2 % (0.0-2.0); HEMATOCRIT 34 % (39-51); HEMOGLOBIN 10.8 g/dL (13.5-17.5); LYMPHOCYTES # (AUTO) 0.5 /CMM (0.8-4.8); LYMPHOCYTES % (AUTO) 1.7 % (20.0-44.0); MEAN CORPUSCULAR HGB CONC 32 g/dl (31.0-36.0); MEAN CORPUSCULAR VOLUME 97 fL (80-96); MONOCYTES # (AUTO) 1.2 /CMM (0.1-1.30); MONOCYTES % (AUTO) 4.6 % (2.0-12.0); NEUTROPHILS # (AUTO) 25.4 /CMM (1.8-8.9); NEUTROPHILS % (AUTO) 93.5 % (43.0-81.0); PLATELET COUNT (AUTO) 240 /CMM (150-450); RED BLOOD CELL COUNT(AUTO) 3.49 MIL/uL (4.5-6.0); WHITE BLOOD COUNT (AUTO) 27.1 K/uL (4.3-11.0)
[2018-11-08 04:26] LABS: CALCIUM, SERUM 9.1 mg/dL (8.5-10.1); CARBON DIOXIDE 20 mmol/L (21-32); CHLORIDE 97 mmol/L (98-107); CREATININE 3.6 mg/dL (0.6-1.3); GLUCOSE 315 mg/dL (74-106); MAGNESIUM 2.7 mg/dL (1.8-2.4); PHOSPHORUS 5.1 mg/dL (2.5-4.9); POTASSIUM 3.9 mmol/L (3.5-5.1); SODIUM SERUM 135 mmol/L (136-145); UREA NITROGEN, BLOOD 76 mg/dL (7-18)
[2018-11-08] MEDS ORDERED: PIPERACILLIN /TAZOBACTAM 2.25 G VIAL IV ONE (04:50)
[2018-11-08] MEDS ORDERED: IV NS 0.9% 250 ML BAG IV ONE (05:00)
[2018-11-08] MEDS ORDERED: IV NS 0.9% 250 ML IV ONE (05:00)
[2018-11-08] MEDS: PIPERACILLIN /TAZOBACTAM 2.25 G in IV NS 0.9% 50 ML IV SCH ×3 (05:03→21:04)
--- NOTE | 2018-11-08 06:00 | NUR ---
Patient resting.VS stable.With ongoing Levophed gtt infusing at 6 mcg.No signs of pain or any discomfort noted.Bathed and linens changed.Turned and repositioned.FC to gravity with little urine. Will endorse to day shift for continuity of care.
[2018-11-08] MEDS ORDERED: ONDANSETRON 4 MG TAB.RAPDIS GT PRN (07:30)
[2018-11-08] MEDS ORDERED: HYDROCODONE/APAP 5/325MG 1 EACH TABLET GT PRN (07:42)
[2018-11-08] MEDS: INSULIN REGULAR, HUMAN 100 UNIT/ML 3 ML VIAL SQ PRN ×2 (07:46→12:34)
[2018-11-08] MEDS ORDERED: VANCOMYCIN 500 MG in IV D5W 100 ML IV PRN ×2 (07:54→08:00)
[2018-11-08] MEDS ORDERED: VANCOMYCIN POST DIALYSIS 500MG IV PRN ×2 (08:00)
[2018-11-08] MEDS ORDERED: MAGNESIUM HYDROXIDE 30 ML UDC GT PRN (08:03)
[2018-11-08] MEDS ORDERED: MAG HYDROX/AL HYDROX/SIMETH 30 ML UDC GT PRN (08:03)
--- NOTE | 2018-11-08 08:12 | NUR ---
received pt from rn shift mgr, alert, does not follow commands, confused, aphasic, A fib controlled, on cool aerosol at 28% fi02, lungs partially congested, f/c low output, HD pt, GT clamped, on levo at 6mcg, v/s stable, no pain, pt turned and repositioned.
[2018-11-08 08:20] LABS: THYROID STIMULATING HORMONE 5.884 uIU/mL (0.358-3.74)
[2018-11-08] MEDS: ASCORBIC ACID 500 MG TABLET GT SCH (08:39)
[2018-11-08] MEDS: HYDROCORTISONE SOD SUCCINATE 100 MG/2 ML VIAL IV SCH ×3 (08:39→16:18)
[2018-11-08] MEDS: ASPIRIN 81 MG TAB.CHEW GT SCH (08:39)
[2018-11-08] MEDS: VIT B CMPLX 3/FA/VIT C/BIOTIN 1 TAB TABLET GT SCH (08:39)
[2018-11-08] MEDS: AMIODARONE HCL 200 MG TABLET GT SCH (08:40)
[2018-11-08] MEDS: LEVOTHYROXINE SODIUM 25 MCG TABLET GT SCH (08:41)
[2018-11-08] MEDS: PROSOURCE / PROSTAT (PYXIS) 30 ML UDC GT SCH ×4 (08:44→21:04)
[2018-11-08] MEDS: LACTOBACILLUS RHAMNOSUS GG 1 EACH CAP.SPRINK GT SCH ×2 (08:54→16:18)
[2018-11-08] MEDS: ERYTHROMYCIN ETHYLSUCCINATE 200 MG/5 ML BOTTLE GT SCH ×3 (08:59→16:18)
[2018-11-08] MEDS ORDERED: CHLORHEXIDINE GLUCONATE 473 ML BOTTLE MM SCH (09:00)
[2018-11-08] MEDS: CHLORHEXIDINE GLUCONATE 15 ML UDC MM SCH ×2 (09:00→16:18)
[2018-11-08] MEDS: BUDESONIDE RESPULE INH 0.5 MG/2 ML AMPUL.NEB IH SCH ×2 (09:06→17:19)
--- NOTE | 2018-11-08 11:03 | NUR ---
WOUND CARE CONSULT WOUND CARE RECEIVED CONSULT FOR SACRAL PRESSURE SORE. WOUND CARE WILL DEFER CONSULT AND TREATMENT PLANS TO PLASTIC SURGICAL TEAM WHO HAVE BEEN NOTIFIED OF THIS CONSULT. PATIENT WITH LILLIE AT 10, ALL PRESSURE ULCER PREVENTION MEASURES ARE NOTED TO BE IN PLACE AT THIS TIME. WILL SEE PRN.
[2018-11-08] MEDS ORDERED: FEE PK DOSING 1 MIN EA MC ONE (11:22)
[2018-11-08] MEDS: FLUDROCORTISONE 0.1 MG TABLET GT SCH ×3 (12:17→23:22)
[2018-11-08] MEDS ORDERED: LIDOCAINE 1%-EPI 1:100,000 20 ML VIAL TP ONE (12:30)
[2018-11-08 12:58] LABS: ABG BASE EXCESS -7.7 mmol/L; ABG OXYGEN SATURATION 95.4 % (92.0-98.5); ABG PCO2 30.6 mmHg (35.0-45.0); ABG PH 7.356 (7.350-7.450); ABG PO2 81.7 mmHg (75.0-100.0); AaDO2 81.8 mmHg; COHb 0.8 % (0.5-1.5); MetHb 0.5 % (0.0-1.5); O2Hb 94.2 % (94.0-97.0); SITE, ABG Right Radial
[2018-11-08] MEDS ORDERED: LIDOCAINE 2% JEL 5 ML TUBE MC ONE (14:30)
[2018-11-08] MEDS: ALBUTEROL FS 2.5 MG/0.5 ML VIAL.NEB NEB SCH ×2 (14:55→19:37)
[2018-11-08] MEDS: IPRATROPIUM NEB FS 0.5 MG/2.5 ML AMPUL.NEB NEB SCH ×2 (14:55→19:37)
--- NOTE | 2018-11-08 16:07 | NUR ---
pt is resting in the bed, alert, does not follow commands, A fib controlled, on levo at 1mcg, v/s stable, no pain, pt cleaned, changed and repositioned.
--- NOTE | 2018-11-08 18:24 | NUR ---
RT RECD PT TRACH ON CA 5L 28% KEI WELL ON TMASK INTACT AND SECURED SX THICK YELLOW LARGE AMOUNT OF SECRETIONS NO RESP DISTRESS WILL CONT TO MONITOR
--- NOTE | 2018-11-08 20:00 | NUR ---
Received patient awake alert non verbal not following commands.Afib controlled 63. Continued with cool aerosol 28% via trach tolerating well.SPO2 99%.Respiration even and unlabored.No distress noted.GT feeding in progress with minimal residual.HOB elevated. FC to gravity.Oliguric HD patient.Turned and repositioned.Continue monitoring.
--- NOTE | 2018-11-08 21:47 | NUR ---
RT NOTE PATIENT RECEIVED TRACHED ON COOL AEROSOL @ 28%. AMBU BAG @ BEDSIDE. PORTEX [address] TX GIVEN, NO ADVERSE REACTIONS NOTED. SX DONE, TRACH SECURED AND PATENT. MODERATE THICK YELLOW SECRETIONS NOTED. NO SOB NOTED. WILL CONTINUE TO MONITOR. Addendum: 11/08/18 at 2149 by CARLOS LEE RT Amended: Links added.
--- NOTE | 2018-11-08 21:50 | NUR ---
2129 Patient awake and combative hitting and scratching RN while giving care.Bilateral soft wrist restraints applied.Patient daughter made aware when she called.
[2018-11-09] VITALS (37 sets, daily range): BP systolic 87–146; BP diastolic 35–74
[2018-11-09] MEDS: ALBUTEROL FS 2.5 MG/0.5 ML VIAL.NEB NEB SCH ×4 (01:47→19:22)
--- NOTE | 2018-11-09 04:00 | NUR ---
Patient awake and combative hitting and kicking during patient care.Bathed and linens changed. Turned and repositioned.Afib controlled.VS remains stable.No acute distress noted.
[2018-11-09 04:45] LABS: HEMATOCRIT 30 % (39-51); HEMOGLOBIN 9.9 g/dL (13.5-17.5); LYMPHOCYTES # (AUTO) 0.7 /CMM (0.8-4.8); LYMPHOCYTES % (AUTO) 4.9 % (20.0-44.0); MEAN CORPUSCULAR HGB CONC 33 g/dl (31.0-36.0); MEAN CORPUSCULAR VOLUME 97 fL (80-96); MONOCYTES % (AUTO) 7.4 % (2.0-12.0); NEUTROPHILS # (AUTO) 12.2 /CMM (1.8-8.9); NEUTROPHILS % (AUTO) 87.7 % (43.0-81.0); PLATELET COUNT (AUTO) 180 /CMM (150-450); RED BLOOD CELL COUNT(AUTO) 3.13 MIL/uL (4.5-6.0); WHITE BLOOD COUNT (AUTO) 13.9 K/uL (4.3-11.0)
[2018-11-09] MEDS: PIPERACILLIN /TAZOBACTAM 2.25 G in IV NS 0.9% 50 ML IV SCH (05:00)
[2018-11-09 05:14] LABS: ALANINE AMINOTRANSFERASE 18 U/L (12-78); ALBUMIN 2.2 g/dL (3.4-5.0); ALKALINE PHOSPHATASE 92 U/L (46-116); ASPARTATE AMINOTRANSFERASE 27 U/L (15-37); BILIRUBIN,TOTAL 0.4 mg/dL (0.2-1.0); CALCIUM, SERUM 9.1 mg/dL (8.5-10.1); CARBON DIOXIDE 17 mmol/L (21-32); CHLORIDE 97 mmol/L (98-107); CREATININE 4.4 mg/dL (0.6-1.3); MAGNESIUM 2.8 mg/dL (1.8-2.4); PHOSPHORUS 6.7 mg/dL (2.5-4.9); POTASSIUM 3.7 mmol/L (3.5-5.1); SODIUM SERUM 134 mmol/L (136-145)
[2018-11-09 05:16] LABS: GLUCOSE 358 mg/dL (74-106); UREA NITROGEN, BLOOD 106 mg/dL (7-18)
[2018-11-09] MEDS: FLUDROCORTISONE 0.1 MG TABLET GT SCH ×4 (05:27→23:03)
[2018-11-09] MEDS: INSULIN REGULAR, HUMAN 100 UNIT/ML 3 ML VIAL SQ PRN ×4 (06:03→23:23)
[2018-11-09] MEDS: BLOOD SUGAR DIAGNOSTIC 1 EACH STRIP VI SCH ×3 (06:04→17:25)
--- NOTE | 2018-11-09 06:30 | NUR ---
Patient resting.AM labs resulted Blood sugar 358 called to with orders received and carried out.BUN 106 patient for HD today.All due medications administered.Wound care done per protocol.Turned and repositioned.Patient remains combative with restraints on.No circulatory impairment noted.Will endorse to day shift for continuity of care.
[2018-11-09] MEDS: IPRATROPIUM NEB FS 0.5 MG/2.5 ML AMPUL.NEB NEB SCH ×3 (07:56→19:22)
--- NOTE | 2018-11-09 08:15 | NUR ---
received pt from application software engineer, alert, does not follow commands, A fib, on cool aerosol at 28% fio2, sat well, GT to feeding tolerates well, f/c low output, having HD right now, restraints on, v/s stable, no pain, pt turned and repositioned.
[2018-11-09] MEDS ORDERED: ALTEPLASE CATHFLO 2 MG/VIAL IV ONE (08:30)
[2018-11-09] MEDS ORDERED: PIPERACILLIN /TAZOBACTAM 2.25 G in IV D5W 50 ML IV SCH (08:55)
[2018-11-09] MEDS: BUDESONIDE RESPULE INH 0.5 MG/2 ML AMPUL.NEB IH SCH ×2 (09:00→17:00)
[2018-11-09] MEDS ORDERED: ALBUMIN 25% 25 GM in PREMIX 1 EA IV PRN (09:00)
[2018-11-09] MEDS: HYDROCORTISONE SOD SUCCINATE 100 MG/2 ML VIAL IV SCH ×2 (09:01→12:41)
[2018-11-09] MEDS: ASCORBIC ACID 500 MG TABLET GT SCH (09:01)
[2018-11-09] MEDS: ASPIRIN 81 MG TAB.CHEW GT SCH (09:01)
[2018-11-09] MEDS: CHLORHEXIDINE GLUCONATE 15 ML UDC MM SCH ×2 (09:01→16:26)
[2018-11-09] MEDS: AMIODARONE HCL 200 MG TABLET GT SCH (09:02)
[2018-11-09] MEDS: VIT B CMPLX 3/FA/VIT C/BIOTIN 1 TAB TABLET GT SCH (09:02)
[2018-11-09] MEDS: LEVOTHYROXINE SODIUM 25 MCG TABLET GT SCH (09:02)
[2018-11-09] MEDS: LACTOBACILLUS RHAMNOSUS GG 1 EACH CAP.SPRINK GT SCH ×2 (09:02→16:26)
[2018-11-09] MEDS: PROSOURCE / PROSTAT (PYXIS) 30 ML UDC GT SCH ×4 (09:03→22:11)
[2018-11-09] MEDS: TRIAMCINOLONE ACETONIDE 0.025% 15 GM TUBE TP SCH (09:04)
[2018-11-09] MEDS: ERYTHROMYCIN ETHYLSUCCINATE 200 MG/5 ML BOTTLE GT SCH ×3 (09:05→17:55)
[2018-11-09] MEDS ORDERED: VANCOMYCIN 1 GM in IV D5W 250 ML IV ONE (12:00)
[2018-11-09] MEDS: PIPERACILLIN /TAZOBACTAM 2.25 G in IV D5W 50 ML IV SCH ×2 (12:43→22:11)
--- NOTE | 2018-11-09 14:00 | NUR ---
RN NOTE PATIENT FROM ICU, CAME VIA BED. AT BEDSIDE. REPORT FROM ERYNA SWARTZ. PATIENT AWAKE AND ALERTX2. BRITISH SPEAKING ONLY. NO COMPLAINS OF ANY PAIN NOR SOB AT THIS TIME. ON TELE MONITOR, SR AT 65. VSS, 97.9, 70, 20 98% AND 139/52. HAS TRACH, ON COOL AEROSOL 5L ON PORTEX #7, FIO2 28%. HAS CARDOSO CATH, YELLOW AND CLEAR URINE. HAS SACRAL STAGE 4 PER ICU NURSE. HAD 2X BM FROM ICU. 100ML URINE OUTPUT FROM ICU. HAS RIGHT UA PICC, SL. RIGHT IJ MIGDALIA CATH AND RIGHT CW DIALYSIS ACCESS. BED LOCKED AND IN LOW POSITION. CALL LIGHT WITHIN REACH. WILL CONT TO MONITOR CLOSELY
--- NOTE | 2018-11-09 14:39 | NUR ---
pt transferred to [facility], ACLS followed, v/s stable, no pain.
--- NOTE | 2018-11-09 15:26 | NUR ---
RN NOTE CALLED KITCHEN FOR TUBE FEEDING. FAMILY AT BEDSIDE
--- NOTE | 2018-11-09 16:08 | NUR ---
RN NOTE RECEIVED A CALL FROM LAB, PATIENT IS POSITIVE FOR MRSA SWAB
[2018-11-09] MEDS: NEPRO 1,000 ML BOTTLE GT PRN (16:25)
[2018-11-09] MEDS: ACETAMINOPHEN 650 MG/20.3 ML UDC GT PRN (18:09)
--- NOTE | 2018-11-09 19:12 | NUR ---
RN CLOSING NOTE PATIENT IN BED, AWAKE. AT BEDSIDE. ON BILATERAL SOFT RESTRAINTS TO BE RENEWED AT 2100. NO COMPLAINS OF ANY PAIN NOR SOB AT THIS TIME. ALL MEDS GIVEN. REPOSITIONED EVERY 2 HOURS. ON GTF AT 45 ML/HR, NO RESIDUAL NOTED. BS 322, INSULIN COVERAGE GIVEN 12 UNITS. PER MD, CONTINUE OF CARE. BED LOCKED AND IN LOWEST POSITION. CALL LIGHT WITHIN REACH. ENDORSE TO NOC SHIFT FOR DORITA
--- NOTE | 2018-11-09 19:30 | NUR ---
TD RN: RECEIVED PT CHRONIC TRACH ON MASK AT 28% FI02. AWAKE AND ALERT, ABLE TO FOLLOW SIMPLE COMMANDS. NO ACUTE DISTRESS. NO C/O PAIN OR EVIDENCE OF DISCOMFORT. AT BEDSIDE. SR WT FREQUENT PACs ON TELE MONITOR. AFEBRILE. GT INTACT AND IN PLACE RUNNING NEPRO AT 45ML/HR AND TOLERATING WELL. KRISTA PICC TKO, RT. CW HD CATH INTACT WT NO S/S OF COMPLICATIONS. F/C PATENT AND INTACT DRAINING ANDI COLORED URINE TO GRAVITY. OFF RESTRAINTS AT THIS TIME IS AT BEDSIDE. HOB AT 35 DEGREES. BED LOCKED AND LOWEST POSITION, ALARM ON WT SIDE RAILS UP X 2. WILL CONTINUE TO MONITOR.
[2018-11-09] MEDS ORDERED: IV NS 0.9% 250 ML IV PRN (22:00)
[2018-11-09] MEDS: ATORVASTATIN 10 MG TABLET GT SCH (22:11)
[2018-11-09] MEDS: MUPIROCIN OINT 2% 22 GM TUBE SCH (22:25)
--- NOTE | 2018-11-09 23:00 | NUR ---
TD RN: DR. MARCOS IN THE UNIT AND MADE AWARE THAT PT IS NOW BACK TO Gasper PAN/Gasper ROWELL ON TELE MONITOR WT HR IN THE 70s. HAS NO NEW ORDER. WILL CONTINUE TO MONITOR.
[2018-11-09] MEDS: BLOOD SUGAR DIAGNOSTIC 1 EACH STRIP IN SCH (23:20)
[2018-11-09] MEDS ORDERED: DEXTROSE 50%-WATER 50 ML DISP.SYRIN IV PRN (23:30)
[2018-11-10] VITALS (7 sets, daily range): BP systolic 66–130; BP diastolic 37–68
[2018-11-10] MEDS: ALBUTEROL FS 2.5 MG/0.5 ML VIAL.NEB NEB SCH ×4 (00:43→19:30)
[2018-11-10] MEDS: FLUDROCORTISONE 0.1 MG TABLET GT SCH ×3 (05:23→17:33)
[2018-11-10] MEDS: PIPERACILLIN /TAZOBACTAM 2.25 G in IV D5W 50 ML IV SCH ×3 (05:23→21:51)
[2018-11-10] MEDS: BLOOD SUGAR DIAGNOSTIC 1 EACH STRIP IN SCH ×3 (05:31→17:36)
[2018-11-10] MEDS: INSULIN REGULAR, HUMAN 100 UNIT/ML 3 ML VIAL SQ PRN ×3 (05:34→17:36)
--- NOTE | 2018-11-10 06:30 | NUR ---
TD RN: BACK TO NSR ON TELE MONITOR. NO ACUTE DISTRESS, NO EVIDENCE OF DISCOMFORT. ALL NEEDS MET. WILL ENDORSE TO DAY SHIFT FOR CONTINUITY OF CARE.
--- NOTE | 2018-11-10 07:05 | NUR ---
RN NOTES RECEIVED PT ON BED, CHRONIC TRACH ON COOL AEROSOL AT 28% FI02. OPENS EYES TO VERBAL , NO SOB NOTED, ON TELE SR HR IN 70'S ,GT INTACT AND IN PLACE RUNNING NEPRO AT 45ML/HR AND TOLERATING WELL. HOB ELEVATED, KRISTA PICC TKO, RT. CW HD CATH INTACT, NO S/S OF COMPLICATIONS NOTED, F/C PATENT AND INTACT DRAINING ANDI COLORED URINE TO GRAVITY.BED LOCKED AND LOWEST POSITION, SR UPx3, CALL LIGHT WITHIN EASY REACH, WILL CONTINUE TO MONITOR.
[2018-11-10 07:28] LABS: BASOPHILS % (AUTO) 0.3 % (0.0-2.0); EOSINOPHILS % (AUTO) 0.3 % (0.0-6.0); HEMATOCRIT 32 % (39-51); HEMOGLOBIN 10.3 g/dL (13.5-17.5); LYMPHOCYTES # (AUTO) 0.9 /CMM (0.8-4.8); LYMPHOCYTES % (AUTO) 8.3 % (20.0-44.0); MEAN CORPUSCULAR HGB CONC 32 g/dl (31.0-36.0); MEAN CORPUSCULAR VOLUME 96 fL (80-96); MONOCYTES # (AUTO) 0.8 /CMM (0.1-1.30); MONOCYTES % (AUTO) 7.9 % (2.0-12.0); NEUTROPHILS # (AUTO) 8.5 /CMM (1.8-8.9); NEUTROPHILS % (AUTO) 83.2 % (43.0-81.0); PLATELET COUNT (AUTO) 187 /CMM (150-450); RED BLOOD CELL COUNT(AUTO) 3.31 MIL/uL (4.5-6.0); WHITE BLOOD COUNT (AUTO) 10.3 K/uL (4.3-11.0)
[2018-11-10 07:52] LABS: CARBON DIOXIDE 21 mmol/L (21-32); CHLORIDE 101 mmol/L (98-107); GLUCOSE 259 mg/dL (74-106); SODIUM SERUM 141 mmol/L (136-145)
[2018-11-10] MEDS: IPRATROPIUM NEB FS 0.5 MG/2.5 ML AMPUL.NEB NEB SCH ×3 (07:56→19:30)
[2018-11-10 08:11] LABS: UREA NITROGEN, BLOOD 118 mg/dL (7-18)
[2018-11-10 08:14] LABS: POTASSIUM 2.7 mmol/L (3.5-5.1)
[2018-11-10] MEDS: LEVOTHYROXINE SODIUM 25 MCG TABLET GT SCH (08:29)
[2018-11-10] MEDS: ASCORBIC ACID 500 MG TABLET GT SCH (08:31)
[2018-11-10] MEDS: AMIODARONE HCL 200 MG TABLET GT SCH (08:31)
[2018-11-10] MEDS: CHLORHEXIDINE GLUCONATE 15 ML UDC MM SCH ×2 (08:31→17:33)
[2018-11-10] MEDS: LACTOBACILLUS RHAMNOSUS GG 1 EACH CAP.SPRINK GT SCH ×2 (08:31→17:33)
[2018-11-10] MEDS: ASPIRIN 81 MG TAB.CHEW GT SCH (08:31)
[2018-11-10] MEDS: VIT B CMPLX 3/FA/VIT C/BIOTIN 1 TAB TABLET GT SCH (08:31)
[2018-11-10] MEDS: PROSOURCE / PROSTAT (PYXIS) 30 ML UDC GT SCH ×4 (08:32→21:51)
[2018-11-10] MEDS: TRIAMCINOLONE ACETONIDE 0.025% 15 GM TUBE TP SCH (08:34)
[2018-11-10] MEDS: MUPIROCIN OINT 2% 22 GM TUBE SCH ×2 (08:34→21:50)
[2018-11-10] MEDS: ERYTHROMYCIN ETHYLSUCCINATE 200 MG/5 ML BOTTLE GT SCH ×3 (08:40→17:33)
--- NOTE | 2018-11-10 09:00 | NUR ---
RN NOTES DR CHAVEZ NOTIFED REGARDING BLOOD GLUCOSE AND K LEVEL , NEW ORDER RECEIVED.
[2018-11-10] MEDS: BUDESONIDE RESPULE INH 0.5 MG/2 ML AMPUL.NEB IH SCH ×2 (09:56→17:02)
[2018-11-10] MEDS: ACETAMINOPHEN 650 MG/20.3 ML UDC GT PRN ×2 (10:20→18:34)
[2018-11-10] MEDS: POTASSIUM CL. PREMIX PERIPHER. 50 ML IV SCH ×6 (10:28→16:00)
--- NOTE | 2018-11-10 14:00 | NUR ---
RN NOTES PT IS VERY COMBATIVE AND AGGRESSIVE DURING TURNING AND REPOSITIONING , FAMILY REFUSED TO HAVE BILATERAL WRIST PROTECTIVE RESTRAINS ON . PT HAS VERY DEMANDING, FAMILY MEMBERS ,CONSTANTLY FOLLOWING THE STAFF AND DEMANDING TO ADDRESS PATIENT MEEDS IMMEDIATELY.
[2018-11-10] MEDS: NEPRO 1,000 ML BOTTLE GT PRN (17:51)
--- NOTE | 2018-11-10 18:45 | NUR ---
RN NOTES PT RECEIVING HD AT THIS TIME, NO DISTRESS NOTED, FAMILY AT THE BEDSIDE, TOLERAING TF WELL, SR UP X3, RESTRAINS OFF PER FAMILY REQUEST , WILL ENDOSE TO [facility] SHIFT NURSE FOR CONTINUITY OF CARE .
--- NOTE | 2018-11-10 19:15 | NUR ---
SOLE LAYER NOTE PATIENT IS RESTING WITH HOB ELEVATED, AOX1-2, TRACH TO VENT ON SETTINGS ORDERED, SKIN KEPT CLEAN AND DRY, KRISTA PICC LINE, PATENT FLUSHING WELL, CURRENTLY RECEIVING HD, NO RESTRAINTS CURRENTLY ON, SAFETY MAINTAINED, BED IN LOW LOCKED POSITION, CALL LIGHT WITHIN REACH, WILL CONTINUE TO MONITOR FOR CHANGES.
--- NOTE | 2018-11-10 19:49 | NUR ---
RT Resp tx held per licensed journeyman electrician
[2018-11-10] MEDS: ATORVASTATIN 10 MG TABLET GT SCH (21:49)
[2018-11-11] VITALS: BP 134/69
[2018-11-11] MEDS: BLOOD SUGAR DIAGNOSTIC 1 EACH STRIP IN SCH ×3 (00:12→12:35)
[2018-11-11] MEDS: FLUDROCORTISONE 0.1 MG TABLET GT SCH ×3 (00:13→12:55)
[2018-11-11] MEDS: INSULIN REGULAR, HUMAN 100 UNIT/ML 3 ML VIAL SQ PRN ×3 (00:18→13:01)
[2018-11-11] MEDS: ALBUTEROL FS 2.5 MG/0.5 ML VIAL.NEB NEB SCH ×3 (01:59→13:53)
[2018-11-11 04:00] VITALS: BP 113/53
[2018-11-11] MEDS: PIPERACILLIN /TAZOBACTAM 2.25 G in IV D5W 50 ML IV SCH ×2 (05:38→12:56)
[2018-11-11 06:49] LABS: BASOPHILS % (AUTO) 0.3 % (0.0-2.0); EOSINOPHILS % (AUTO) 4.4 % (0.0-6.0); HEMATOCRIT 31 % (39-51); HEMOGLOBIN 10.2 g/dL (13.5-17.5); LYMPHOCYTES # (AUTO) 0.7 /CMM (0.8-4.8); LYMPHOCYTES % (AUTO) 7.8 % (20.0-44.0); MEAN CORPUSCULAR HGB CONC 33 g/dl (31.0-36.0); MEAN CORPUSCULAR VOLUME 94 fL (80-96); MONOCYTES # (AUTO) 0.6 /CMM (0.1-1.30); MONOCYTES % (AUTO) 6.6 % (2.0-12.0); NEUTROPHILS # (AUTO) 7.3 /CMM (1.8-8.9); NEUTROPHILS % (AUTO) 80.9 % (43.0-81.0); PLATELET COUNT (AUTO) 189 /CMM (150-450)
[2018-11-11 06:54] LABS: CALCIUM, SERUM 8.7 mg/dL (8.5-10.1); CARBON DIOXIDE 28 mmol/L (21-32); CHLORIDE 99 mmol/L (98-107); CREATININE 2.6 mg/dL (0.6-1.3); GLUCOSE 234 mg/dL (74-106); POTASSIUM 3.3 mmol/L (3.5-5.1); SODIUM SERUM 139 mmol/L (136-145); UREA NITROGEN, BLOOD 61 mg/dL (7-18)
--- NOTE | 2018-11-11 07:20 | NUR ---
RN OPENING NOTES PT IS ASLEEP IN BED WITH COOL AEROSOL. SHOW NO SIGNS OF RESPIRATORY DISTRESS OR PAIN AT PRESENT TIME. PT HAS A KRISTA PICC LINE SL. PT HAS NEPRO RUNNING AT 40 MLS/HR PT HOB ELEVATED IS 40 DEGREES. BED IS LOCKED AND IN LOWEST POSITION. WILL CONTINUE TO MONITOR.
[2018-11-11 08:00] VITALS: BP 119/67
[2018-11-11] MEDS: IPRATROPIUM NEB FS 0.5 MG/2.5 ML AMPUL.NEB NEB SCH ×2 (08:19→13:53)
[2018-11-11] MEDS ORDERED: LIDOCAINE 1%-EPI 1:100,000 20 ML VIAL TP ONE (09:00)
[2018-11-11] MEDS: BUDESONIDE RESPULE INH 0.5 MG/2 ML AMPUL.NEB IH SCH (09:11)
--- NOTE | 2018-11-11 09:30 | NUR ---
RT NOTE PT. 78 Y OLD MALE PLACED ON ROOM AIR PER DR. REDMOND ORDER AND CONTINUE TO MONITOR SPO2. KEEP OVER 92% PER DR. REDMOND. RN INFORMED THE CHANGES. Addendum: 11/11/18 at 1848 by BRENDON MONSALVE RT Amended: Links added.
[2018-11-11] MEDS: CHLORHEXIDINE GLUCONATE 15 ML UDC MM SCH (09:50)
[2018-11-11] MEDS: LACTOBACILLUS RHAMNOSUS GG 1 EACH CAP.SPRINK GT SCH (09:51)
[2018-11-11] MEDS: VIT B CMPLX 3/FA/VIT C/BIOTIN 1 TAB TABLET GT SCH (09:51)
[2018-11-11] MEDS: LEVOTHYROXINE SODIUM 25 MCG TABLET GT SCH (09:51)
[2018-11-11] MEDS: AMIODARONE HCL 200 MG TABLET GT SCH (09:52)
[2018-11-11] MEDS: ASPIRIN 81 MG TAB.CHEW GT SCH (09:52)
[2018-11-11] MEDS: ASCORBIC ACID 500 MG TABLET GT SCH (09:52)
[2018-11-11] MEDS: MUPIROCIN OINT 2% 22 GM TUBE SCH (09:52)
[2018-11-11] MEDS: PROSOURCE / PROSTAT (PYXIS) 30 ML UDC GT SCH ×2 (09:53→13:33)
[2018-11-11] MEDS: ERYTHROMYCIN ETHYLSUCCINATE 200 MG/5 ML BOTTLE GT SCH ×2 (09:57→13:57)
[2018-11-11] MEDS ORDERED: LIDOCAINE 2% JEL 5 ML TUBE MC STA (10:20)
[2018-11-11] MEDS: TRIAMCINOLONE ACETONIDE 0.025% 15 GM TUBE TP SCH (10:28)
[2018-11-11] MEDS ORDERED: DAKINS QUARTER STRENGTH (0.125%) 480 ML BOTTLE TOP SCH (10:30)
[2018-11-11] MEDS ORDERED: PIPE3.379 IV (11:31)
[2018-11-11 12:00] VITALS: BP 100/40
[2018-11-11 16:00] VITALS: BP_SYST 107; BP_SYST 127; BP_DIAS 63
[2018-11-11] MEDS: ACETAMINOPHEN 650 MG/20.3 ML UDC GT PRN (17:19)
--- NOTE | 2018-11-11 17:27 | NUR ---
RN D/C NOTES REPORT [facility]IV[facility] TO [facility]. PT IS STABLE AND AT BEDSIDE. EXITCARE PACKET GIVEN TO EMT'S. BELONGINGS GIVEN TO . FEEDING STOPPED AND CLAMPED. PT CLEANED PRIOR TO TRANSFER AND WOUND TREATMENT DONE. PT TAKEN BY AMBULANCE. PT GOING WITH PICC LINE TO CONTINUE ABX TX.
== END 2018-11-11 20:00 | DRG 853 ==
LOC: ER 18:47 → TELE-TD 21:35 → ICU 23:16 → TELE-TD 11-09 13:54 → TELE1 11-10 17:33 → MEDSG1 11-11 11:15
PROVIDERS: ADMIT Internal Medicine; ATTEND Family Medicine
PROC: 02HV33Z Insertion of Infusion Device into Superior Vena Cava, Percutaneous Approach (ICD-10-PCS; 2018-11-07)
PROC: B548ZZA Ultrasonography of Superior Vena Cava, Guidance (ICD-10-PCS; 2018-11-07)
PROC: 0QB10ZZ Excision of Sacrum, Open Approach (ICD-10-PCS; principal; 2018-11-08)
PROC: 5A1D70Z Performance of Urinary Filtration, Intermittent, Less than 6 Hours Per Day (ICD-10-PCS; 2018-11-09)
DX: A41.9 Sepsis, unspecified organism (principal); L89.154 Pressure ulcer of sacral region, stage 4; L89.324 Pressure ulcer of left buttock, stage 4; R65.21 Severe sepsis with septic shock; J96.21 Acute and chronic respiratory failure with hypoxia; G93.41 Metabolic encephalopathy; I21.A1 Myocardial infarction type 2; N18.6 End stage renal disease; E43 Unspecified severe protein-calorie malnutrition; N39.0 Urinary tract infection, site not specified; E87.2 Acidosis; E87.1 Hypo-osmolality and hyponatremia; I12.0 Hypertensive chronic kidney disease with stage 5 chronic kidney disease or end stage renal disease; I69.354 Hemiplegia and hemiparesis following cerebral infarction affecting left non-dominant side; Z99.11 Dependence on respirator [ventilator] status; D68.59 Other primary thrombophilia; E03.9 Hypothyroidism, unspecified; K21.9 Gastro-esophageal reflux disease without esophagitis; Z93.1 Gastrostomy status; Z99.2 Dependence on renal dialysis; Z87.891 Personal history of nicotine dependence; Z95.1 Presence of aortocoronary bypass graft; I25.2 Old myocardial infarction; I25.10 Atherosclerotic heart disease of native coronary artery without angina pectoris; E87.6 Hypokalemia; D63.8 Anemia in other chronic diseases classified elsewhere; E11.22 Type 2 diabetes mellitus with diabetic chronic kidney disease; Z79.4 Long term (current) use of insulin; Z79.82 Long term (current) use of aspirin; Z86.74 Personal history of sudden cardiac arrest; I69.320 Aphasia following cerebral infarction; E88.09 Other disorders of plasma-protein metabolism, not elsewhere classified; M62.50 Muscle wasting and atrophy, not elsewhere classified, unspecified site; E11.65 Type 2 diabetes mellitus with hyperglycemia; R21 Rash and other nonspecific skin eruption; E87.70 Fluid overload, unspecified; Z93.0 Tracheostomy status
CPT/HCPCS: 31720; 36415; 36569; 36600; 71045-TC; 80048-TC; 80053-TC; 80076-TC; 80202-TC; 81000-TC; 82533; 82728-TC; 82803-TC; 82962-TC; 83540-TC; 83605-TC; 83735-TC; 84100-TC; 84132-TC; 84439-TC; 84443-TC; 84484-TC; 85025-TC; 85730-TC; 86706; 87040-TC; 87081-TC; 87086-TC; 87186-TC; 87340; 90935-TC; 94640-TC; 94664-TC; 94760-TC; A4216; A4217; A4623; A4624; A6253; A6403; C1751; G0378; J1720; J1815; J2405; J2543; J2997; J3370; J3480; J3490; J7040; J7050; J7060; P9047

== ENCOUNTER 2018-12-08 11:41 | Inpatient (IN) | payer MEDICARE, OTHER ==
[~2018-12-08] VITALS: Ht 165.1 cm; Wt 72.1 kg
[~2018-12-08 11:41] MED LIST changes: -DOCU50LI GT; +ERYT200S16 PO; +INSU100I26 SQ; -LANS30CA54 GT; +LEVO25TA7 GT; -LIDO30CR47 TP; +LOPE2CAP40 PO; -MERO500V3 IV; -NPH,100V SQ; -OMEG1CAP GT; +PIPE3.379 IV; -POLY17PO4 GT; +PROT946L GT; -SEVE0.8P GT; -[UNRECOGNIZED DRUG - CODE] TD
[2018-12-08] MEDS ORDERED: LIDO30CR TP (12:13)
[2018-12-08] MEDS ORDERED: CEPH-569 PO (12:13)
--- NOTE | 2018-12-08 12:13 | NUR ---
PT REC'D TO ER VIA EMS PT HAS JOSELO CATH UPPER RIGHT CHEST POSS OUT NEEDS RE CH / IV STARTED LABS SENT TO LAB 20G FAMIY AT BEDSIDE AWAITING EVALUATION BY ER PROVIDER.
[2018-12-08 12:14] LABS: BASOPHILS # (AUTO) 0.1 /CMM (0.0-0.2); BASOPHILS % (AUTO) 0.5 % (0.0-2.0); EOSINOPHILS % (AUTO) 5.3 % (0.0-6.0); HEMATOCRIT 45 % (39-51); LYMPHOCYTES # (AUTO) 0.7 /CMM (0.8-4.8); LYMPHOCYTES % (AUTO) 6.9 % (20.0-44.0); MEAN CORPUSCULAR HGB CONC 33 g/dl (31.0-36.0); MEAN CORPUSCULAR VOLUME 96 fL (80-96); MONOCYTES # (AUTO) 0.5 /CMM (0.1-1.30); MONOCYTES % (AUTO) 4.3 % (2.0-12.0); NEUTROPHILS # (AUTO) 8.8 /CMM (1.8-8.9); PLATELET COUNT (AUTO) 237 /CMM (150-450); RED BLOOD CELL COUNT(AUTO) 4.69 MIL/uL (4.5-6.0); WHITE BLOOD COUNT (AUTO) 10.6 K/uL (4.3-11.0)
[2018-12-08 12:25] LABS: CALCIUM, SERUM 10.4 mg/dL (8.5-10.1); CARBON DIOXIDE 26 mmol/L (21-32); CHLORIDE 97 mmol/L (98-107); CREATININE 3.5 mg/dL (0.6-1.3); GLUCOSE 145 mg/dL (74-106); POTASSIUM 4.2 mmol/L (3.5-5.1); SODIUM SERUM 136 mmol/L (136-145); UREA NITROGEN, BLOOD 63 mg/dL (7-18)
--- NOTE | 2018-12-08 12:28 | NUR ---
PAGED [facility].
--- NOTE | 2018-12-08 12:47 | NUR ---
PT HAS CATH SMALL AM URINE CLOUDY SENT TO LAB . G TUBE INPACE SKIN RED PATCHY
--- NOTE | 2018-12-08 13:52 | NUR ---
REPORT GIVEN TO BONNIE RN FOR DORITA
[2018-12-08] MEDS ORDERED: BISACODYL SUPP (10 MG) 10 MG/SUPP.RECT SUPP.RECT RC PRN (14:00)
[2018-12-08] MEDS ORDERED: Z GUARD REMEDY 2 OZ OINT TP PRN (14:00)
[2018-12-08] MEDS ORDERED: LOPERAMIDE HCL (2 MG CAP) 2 MG CAPSULE PO PRN (14:00)
[2018-12-08] MEDS ORDERED: HYDROCODONE/APAP 5/325MG 1 EACH TABLET GT PRN (14:00)
[2018-12-08] MEDS ORDERED: Medication Not On Formulary EA (Ondansetron Hcl (Zofran) 4 MG) GT PRN (14:00)
[2018-12-08] MEDS ORDERED: METOCLOPRAMIDE HCL 10 MG/10 ML UDC GT PRN (14:00)
[2018-12-08] MEDS ORDERED: INSULIN LISPRO/ASPART 100 UNIT/ML CARTRIDGE SQ PRN (14:00)
[2018-12-08] MEDS ORDERED: ACETAMINOPHEN 650 MG/20.3 ML UDC GT PRN (14:00)
[2018-12-08] MEDS ORDERED: MAGNESIUM HYDROXIDE 30 ML UDC PO PRN (14:00)
[2018-12-08] MEDS ORDERED: TRAMADOL HCL 50 MG TABLET GT PRN (14:00)
[2018-12-08] MEDS ORDERED: ZOLPIDEM TARTRATE 5 MG TABLET PO PRN (14:00)
[2018-12-08] MEDS ORDERED: MAG HYDROX/AL HYDROX/SIMETH 30 ML UDC PO PRN (14:00)
[2018-12-08] MEDS ORDERED: CLONIDINE HCL 0.1 MG TABLET GT PRN (14:00)
[2018-12-08] MEDS ORDERED: ONDANSETRON HCL/PF 4 MG/2 ML VIAL IVP PRN (14:00)
--- NOTE | 2018-12-08 14:00 | NUR ---
MS STRUCTURAL ENGINEERING PROJECT MANAGER NOTES REPORT GIVEN HALLE NICOLE RN IN [facility].RECEIVED PT BY [place] FROM ER TO ROOM 111-2.PT IS LAERT/ORIENTED X2 WITH ANGUILLAN SPEAKING.ON ROOM AIR,TOLERATING WELL.NO SOB AND ACUTE DISTRESS NOTED.TRACHEOSTOMY IS IN PLACE AND IT IS CLOSED.G TUBE IS IN PLACE WITH MINIMAL GASTRIC RESIDUAL NOTED.CARDOSO CATH PRESENT WITH CLEAR YELLOW COLOR URINE.LEFT SIDED WEAKNESS PRESENT.SKIN ASSESSMENT IS DONE AND NOTED WITH SACRAL ULCER,RASHES ON BACK,BRUISES ON B/L ARMS,REDNESS ON B/L HEELS.PICTURES HAS TAKEN.OFFLOAD THE AREAS.PT IS CLEAN AND DRY.VITAL SIGNS TAKEN.IV LINE IS ON RIGHT AC G20,SL.IV SITE IS CLEAN,DRY AND INTACT.NO INFILTRATION NOTED.SAFETY IS MAINTAINED AT ALL TIMES.CALL LIGHT IS WITHIN REACH.FAMILY IS NYDIA BEDSIDE.WILL CONTINUE TO MONITOR THE PT CLOSELY.
[2018-12-08] MEDS ORDERED: DEXTROSE 50%-WATER 50 ML DISP.SYRIN IV PRN (14:30)
[2018-12-08] MEDS: CLINDAMYCIN 600 MG in IV D5W 50 ML IV SCH ×2 (15:41→22:59)
[2018-12-08 16:00] VITALS: BP_SYST 122; BP_SYST 93; BP_DIAS 46; BP_DIAS 55
[2018-12-08] MEDS: ACETAMINOPHEN 325 MG TABLET PO PRN (16:15)
[2018-12-08] MEDS: BUDESONIDE RESPULE INH 0.5 MG/2 ML AMPUL.NEB IH SCH (17:00)
[2018-12-08] MEDS: METOPROLOL TARTRATE 25 MG TABLET GT SCH (17:00)
--- NOTE | 2018-12-08 17:00 | NUR ---
MS RN NOTES CALLED THE [facility],KEN GARIBAY ABOUT THE MEDICATION LIST X3,WAITING TO BE FAX THE ORDERS.
[2018-12-08] MEDS: CHLORHEXIDINE GLUCONATE 15 ML UDC MM SCH (17:10)
[2018-12-08] MEDS: PROSOURCE / PROSTAT (PYXIS) 30 ML UDC GT SCH ×2 (17:10→21:00)
[2018-12-08] MEDS: LIDOCAINE/PRILOCAINE (5GM) 5 GM TUBE TP SCH (17:10)
[2018-12-08] MEDS: BLOOD SUGAR DIAGNOSTIC 1 EACH STRIP IN SCH ×2 (17:11→22:21)
[2018-12-08] MEDS: INSULIN ASPART/LISPRO 100 UNIT/ML CARTRIDGE SQ SCH (17:15)
--- NOTE | 2018-12-08 17:30 | NUR ---
MS RN NOTES CALLED NORM GARIBAY.[facility] TO GET THE MEDICATION LIST OF THE PT TO KNOW THE G TUBE FEEDING FORMULA.
--- NOTE | 2018-12-08 17:30 | NUR ---
MS RN NOTES CALLED THE [facility],KENBrennan GARIBAY AGAIN TO GET THE MEDICATION LIST TO BE FAXED.
--- NOTE | 2018-12-08 17:59 | NUR ---
PT FAMILY REFUSED RESP TX ATT. PT PRESENTS NO S/S OF SOB ATT. SPO2 97 HR 68 Addendum: 12/08/18 at 1759 by RODRIGUEZ MANZO RT Amended: Links added.
[2018-12-08] MEDS: ERYTHROMYCIN ETHYLSUCCINATE 200 MG/5 ML SUSPENSION GT SCH (19:25)
[2018-12-08] MEDS ORDERED: Medication Not On Formulary EA (Ipratropium/Albuterol Sulfate (Duoneb 2.5-0.5 Mg/3 Ml So IH SCH (19:30)
[2018-12-08] MEDS: IPRATROPIUM NEB FS 0.5 MG/2.5 ML AMPUL.NEB NEB SCH (19:30)
[2018-12-08] MEDS: ALBUTEROL FS 2.5 MG/0.5 ML VIAL.NEB NEB SCH (19:30)
--- NOTE | 2018-12-08 19:57 | NUR ---
MS RN CLOSING NOTES PT IS LYING ON BED,ALERT/ORIENTED X2.NO SIGNIFICANT CHANGES NOTED IN THE SHIFT.RESPIRATION IS EVEN AND NONLABORED.ENDORSED TO FENCE MANUFACTURE SUPERVISOR RN ABOUT TO GET THE TUBE FEEDING AND PT DORITA.
[2018-12-08 20:00] VITALS: BP 129/75
--- NOTE | 2018-12-08 20:10 | NUR ---
2009 TRACH STOMA DRESSING AND GT SITE DRESSING CHANGED PER PATIENT'S REQUEST. TRACH STOMA NOTED CLEAN WITH MINIMAL DRAINAGE NOTED. PEG STOMA NOTED DRY WITH MINIMAL REDNESS AROUND IT. PATIENT TOLERATED PROCEDURE WELL. PT.'S REQUESTS FOR BILATERAL HAND MITTENS TO BE APPLIED TO PREVENT PATIENT FROM PULLING ON TUBES AND LINES. EXPLAINED TO MD WILL BE NOTIFIED.
[2018-12-08] MEDS ORDERED: NEPRO VAN 237 ML CAN GT SCH (21:00)
[2018-12-08] MEDS ORDERED: CLINDAMYCIN IV RTU IN D5W 600 MG/50 ML PIGGYBACK IV SCH (21:00)
[2018-12-08] MEDS: ATORVASTATIN 10 MG TABLET GT SCH (22:20)
[2018-12-08] MEDS: INSULIN ASPART/LISPRO 100 UNIT/ML CARTRIDGE SQ PRN (23:12)
--- NOTE | 2018-12-09 | NUR ---
Insulin Novologg/Humalog 5 units held D/T 3units given via sliding scale @3665 BS 170
[2018-12-09] MEDS: IPRATROPIUM NEB FS 0.5 MG/2.5 ML AMPUL.NEB NEB SCH ×4 (00:50→19:22)
[2018-12-09] MEDS: ALBUTEROL FS 2.5 MG/0.5 ML VIAL.NEB NEB SCH ×4 (01:30→19:22)
[2018-12-09 04:00] VITALS: BP 140/67
[2018-12-09] MEDS: INSULIN ASPART/LISPRO 100 UNIT/ML CARTRIDGE SQ SCH ×4 (06:00→18:00)
[2018-12-09 06:20] LABS: BASOPHILS # (AUTO) 0.1 /CMM (0.0-0.2); BASOPHILS % (AUTO) 0.6 % (0.0-2.0); EOSINOPHILS % (AUTO) 8.8 % (0.0-6.0); HEMATOCRIT 39 % (39-51); HEMOGLOBIN 12.8 g/dL (13.5-17.5); LYMPHOCYTES # (AUTO) 1.3 /CMM (0.8-4.8); MEAN CORPUSCULAR HGB CONC 33 g/dl (31.0-36.0); MEAN CORPUSCULAR VOLUME 96 fL (80-96); MONOCYTES # (AUTO) 0.9 /CMM (0.1-1.30); MONOCYTES % (AUTO) 9.2 % (2.0-12.0); NEUTROPHILS # (AUTO) 6.8 /CMM (1.8-8.9); NEUTROPHILS % (AUTO) 68.4 % (43.0-81.0); PLATELET COUNT (AUTO) 194 /CMM (150-450); RED BLOOD CELL COUNT(AUTO) 4.11 MIL/uL (4.5-6.0)
[2018-12-09 07:01] LABS: CALCIUM, SERUM 9.8 mg/dL (8.5-10.1); CARBON DIOXIDE 24 mmol/L (21-32); CHLORIDE 103 mmol/L (98-107); CREATININE 3.8 mg/dL (0.6-1.3); GLUCOSE 185 mg/dL (74-106); MAGNESIUM 2.7 mg/dL (1.8-2.4); POTASSIUM 4.5 mmol/L (3.5-5.1); SODIUM SERUM 142 mmol/L (136-145); UREA NITROGEN, BLOOD 78 mg/dL (7-18)
--- NOTE | 2018-12-09 07:20 | NUR ---
RECEIVED REPORT FROM [facility] SHIFT NURSE. PT ASLEEP IN BED, ON ROOM AIR, RESPIRATIONS EASY AND UNLABORED, NO SIGNS OF RESPIRATORY DISTRESS NOTED. GTUBE PLACEMENT CHECKED WITH AUSCULTATION, ASPIRATION, AND FLUSHED WITH NS. CARDOSO CATHETER DRAINING CLEAR YELLOW URINE. BED IN LOW POSITION, LOCKED, CALL LIGHT WITHIN REACH.
[2018-12-09] MEDS: CLINDAMYCIN 600 MG in IV D5W 50 ML IV SCH ×3 (07:43→22:47)
--- NOTE | 2018-12-09 07:49 | NUR ---
Insulin Novolog/Humalog 5 Units endorsed to next shift nurse d/t Pt on tube feeding
[2018-12-09] MEDS: LEVOTHYROXINE SODIUM 75 MCG TABLET GT SCH (07:58)
[2018-12-09 08:00] VITALS: BP 151/80
[2018-12-09] MEDS: BLOOD SUGAR DIAGNOSTIC 1 EACH STRIP IN SCH ×4 (08:13→21:58)
[2018-12-09] MEDS: ASCORBIC ACID 500 MG TABLET GT SCH (08:13)
[2018-12-09] MEDS: VIT B CMPLX 3/FA/VIT C/BIOTIN 1 TAB TABLET GT SCH (08:13)
[2018-12-09] MEDS: AMIODARONE HCL 200 MG TABLET GT SCH (08:14)
[2018-12-09] MEDS: ERYTHROMYCIN ETHYLSUCCINATE 200 MG/5 ML SUSPENSION GT SCH ×3 (08:14→18:01)
[2018-12-09] MEDS: CHLORHEXIDINE GLUCONATE 15 ML UDC MM SCH ×2 (08:14→18:00)
[2018-12-09] MEDS: ASPIRIN 81 MG TAB.CHEW GT SCH (08:14)
[2018-12-09] MEDS: METOPROLOL TARTRATE 25 MG TABLET GT SCH ×2 (08:14→18:00)
[2018-12-09] MEDS: BUDESONIDE RESPULE INH 0.5 MG/2 ML AMPUL.NEB IH SCH ×2 (08:25→17:00)
[2018-12-09 08:50] LABS: CHOLESTEROL 153 mg/dL (<200); HDL CHOLESTEROL 31 mg/dL (40-60); LDL 75 mg/dL (0-99); TRIGLYCERIDES 353 mg/dL (30-150)
[2018-12-09] MEDS: LIDOCAINE/PRILOCAINE (5GM) 5 GM TUBE TP SCH ×2 (09:00→17:59)
[2018-12-09] MEDS: PROSOURCE / PROSTAT (PYXIS) 30 ML UDC GT SCH ×4 (09:24→21:54)
[2018-12-09] MEDS: INSULIN GLARGINE, 100 UNIT/ML CARTRIDGE SQ SCH (09:30)
[2018-12-09] MEDS ORDERED: NEPRO 1,000 ML BOTTLE GT PRN ×2 (10:00→10:02)
--- NOTE | 2018-12-09 10:45 | NUR ---
PT PULLED OUT HIS IV ON RIGHT AC G20, SECURED WITH DRY DRESSING.
--- NOTE | 2018-12-09 11:00 | NUR ---
ATTEMPTED TO INSERT NEW IV ON RIGHT HAND, INSERTION UNSUCCESSFUL. WILL TRY AGAIN AT A LATER TIME.
--- NOTE | 2018-12-09 11:07 | NUR ---
SPOKE WITH DR. CHAVEZ REGARDING PT'S 'S REQUEST OF BILATERAL MITTEN RESTRAINTS DUE TO PT PULLING OUT HIS IV ON RIGHT AC G20. ORDERS PLACED- PT'S PREFERS PT TO PUT THEM ON LATER ON DURING THE DAY.
[2018-12-09] MEDS: HYDROCORTISONE 1% CREAM 28.35 GM TUBE TP SCH ×2 (11:30→17:59)
[2018-12-09] MEDS: DAKINS QUARTER STRENGTH (0.125%) 480 ML BOTTLE TOP SCH (11:30)
[2018-12-09] MEDS: INSULIN ASPART/LISPRO 100 UNIT/ML CARTRIDGE SQ PRN ×3 (12:07→22:52)
--- NOTE | 2018-12-09 13:00 | NUR ---
DUE TO PT'S 'S REQUEST, CANCELLED ORDER FOR BILATERAL MITTEN RESTRAINTS.
[2018-12-09 16:00] VITALS: BP_SYST 130; BP_SYST 142; BP_DIAS 60; BP_DIAS 68
--- NOTE | 2018-12-09 16:59 | NUR ---
OBTAINED ORDER FROM DR. CHAVEZ FOR BILATERAL SOFT WRIST RESTRAINTS DUE TO PT HITTING STAFF AND TRYING TO REMOVE IV LINE- PTS SIGNED CONSENT, PLACED IN CHART.
--- NOTE | 2018-12-09 17:45 | NUR ---
DIALYSIS NURSE BEGAN DIALYSIS AT 15:15. FINISHED AT 17:45. 852ML REMOVED.
--- NOTE | 2018-12-09 19:20 | NUR ---
MS RN CLOSING NOTE PT AWAKE IN BED, ALERT AND ORIENTED X 1, FAMILY BY BEDSIDE. PT ON ROOM AIR, RESPIRATIONS EASY AND UNLABORED, NO SIGNS OF RESPIRATORY DISTRESS NOTED. GTUBE PLACEMENT CHECKED WITH AUSCULTATION, ASPIRATION, AND FLUSHED WITH NS. ADMINISTERED 2 GT BOLUS FEEDINGS OF NEPHRO 237ML. PT TOLERATED FEEDING WELL. NPO AFTER MIDNIGHT- SCHEDULED FOR DIALYSIS REPLACEMENT TOMORROW AT 3PM. RIGHT FOREARM G22 IV SITE INTACT, PATENT. CARDOSO CATHETER DRAINING CLEAR YELLOW URINE. PROVIDED SAFETY AND COMFORT TO PT THROUGHOUT SHIFT. ALL DUE MEDS GIVEN. TURNED AND REPOSITIONED EVERY 2 HOURS. BED IN LOW POSITION, LOCKED, CALL LIGHT WITHIN REACH. WILL ENDORSE TO NOC SHIFT NURSE.
[2018-12-09 20:00] VITALS: BP 115/60
--- NOTE | 2018-12-09 20:00 | NUR ---
PT R LATERAL W BUTT AREA ELEVATION, ON DIAPER, BREATHING REGULAR AND EVEN ON RA. TORSO W RASH AFTER DIALYSIS. AT THE BEDSIDE, REQUESTING SOFT MITTEN AND ANTI ITCH MEDICATION FOR THE PATIENT. NIGHT PROVIDER CONTACTED VIA TELEPHONE AND RECEIVED THE VERBAL ORDER FOR BENADRYL PRN AND SOFT MITTEN ORDER. PT RESTING QUIETLY, NAD, VITAL SIGNS WITHIN THE BASELINE. COMFORT & SAFETY CHECKED IN THE PATIENT.
[2018-12-09] MEDS: ACETAMINOPHEN 325 MG TABLET PO PRN (20:31)
[2018-12-09] MEDS: ATORVASTATIN 10 MG TABLET GT SCH (21:57)
--- NOTE | 2018-12-09 22:15 | NUR ---
Received patient from REYNA Chavez.No unusual signs or symptoms observed or reported,no problems
--- NOTE | 2018-12-09 23:29 | NUR ---
PT RESTING QUIETLY, REPOSITION PT FOR COMFORT AND PRESSURE RELIEF IN THE SACRAL AREA. PT CARE ENDORSED TO A MS RN.
[2018-12-09] MEDS ORDERED: diphenhydrAMINE HCL 25 MG CAPSULE PO PRN (23:30)
[2018-12-10] MEDS: ALBUTEROL FS 2.5 MG/0.5 ML VIAL.NEB NEB SCH ×4 (01:30→19:30)
[2018-12-10] MEDS: IPRATROPIUM NEB FS 0.5 MG/2.5 ML AMPUL.NEB NEB SCH ×4 (01:30→19:30)
--- NOTE | 2018-12-10 02:32 | NUR ---
Patient began to pull on GT and has pulled out the IV access.Place on two points restraints.Monitoring patient frequently.
[2018-12-10 06:22] LABS: BASOPHILS # (AUTO) 0.1 /CMM (0.0-0.2); BASOPHILS % (AUTO) 1.2 % (0.0-2.0); EOSINOPHILS % (AUTO) 8.1 % (0.0-6.0); HEMATOCRIT 40 % (39-51); HEMOGLOBIN 12.7 g/dL (13.5-17.5); LYMPHOCYTES % (AUTO) 8.9 % (20.0-44.0); MEAN CORPUSCULAR HGB CONC 32 g/dl (31.0-36.0); MEAN CORPUSCULAR VOLUME 96 fL (80-96); MONOCYTES # (AUTO) 0.7 /CMM (0.1-1.30); MONOCYTES % (AUTO) 6.9 % (2.0-12.0); NEUTROPHILS # (AUTO) 8.1 /CMM (1.8-8.9); NEUTROPHILS % (AUTO) 74.9 % (43.0-81.0); PLATELET COUNT (AUTO) 223 /CMM (150-450); RED BLOOD CELL COUNT(AUTO) 4.13 MIL/uL (4.5-6.0); WHITE BLOOD COUNT (AUTO) 10.9 K/uL (4.3-11.0)
[2018-12-10 06:28] LABS: CARBON DIOXIDE 31 mmol/L (21-32); CHLORIDE 106 mmol/L (98-107); CREATININE 2.8 mg/dL (0.6-1.3); GLUCOSE 144 mg/dL (74-106); POTASSIUM 5.3 mmol/L (3.5-5.1); SODIUM SERUM 146 mmol/L (136-145); UREA NITROGEN, BLOOD 57 mg/dL (7-18)
[2018-12-10] MEDS: INSULIN ASPART/LISPRO 100 UNIT/ML CARTRIDGE SQ SCH ×5 (07:00→23:31)
[2018-12-10] MEDS: LEVOTHYROXINE SODIUM 75 MCG TABLET GT SCH (07:30)
[2018-12-10] MEDS: BLOOD SUGAR DIAGNOSTIC 1 EACH STRIP IN SCH ×4 (07:54→23:29)
[2018-12-10 08:00] VITALS: BP 161/79
[2018-12-10] MEDS: CLINDAMYCIN 600 MG in IV D5W 50 ML IV SCH ×3 (08:25→22:18)
[2018-12-10] MEDS: AMIODARONE HCL 200 MG TABLET GT SCH (08:36)
[2018-12-10] MEDS: ASPIRIN 81 MG TAB.CHEW GT SCH (08:36)
[2018-12-10] MEDS: METOPROLOL TARTRATE 25 MG TABLET GT SCH ×2 (08:37→16:47)
[2018-12-10] MEDS: VIT B CMPLX 3/FA/VIT C/BIOTIN 1 TAB TABLET GT SCH (08:37)
[2018-12-10] MEDS: ERYTHROMYCIN ETHYLSUCCINATE 200 MG/5 ML SUSPENSION GT SCH ×3 (08:37→16:47)
[2018-12-10] MEDS: ASCORBIC ACID 500 MG TABLET GT SCH (08:38)
[2018-12-10] MEDS: INSULIN GLARGINE, 100 UNIT/ML CARTRIDGE SQ SCH (08:38)
[2018-12-10] MEDS: PROSOURCE / PROSTAT (PYXIS) 30 ML UDC GT SCH ×4 (08:38→20:56)
[2018-12-10] MEDS: BUDESONIDE RESPULE INH 0.5 MG/2 ML AMPUL.NEB IH SCH ×2 (09:00→16:43)
[2018-12-10] MEDS: LIDOCAINE/PRILOCAINE (5GM) 5 GM TUBE TP SCH ×2 (09:51→16:47)
[2018-12-10] MEDS: DAKINS QUARTER STRENGTH (0.125%) 480 ML BOTTLE TOP SCH (09:51)
[2018-12-10] MEDS: HYDROCORTISONE 1% CREAM 28.35 GM TUBE TP SCH ×2 (10:05→16:48)
[2018-12-10] MEDS: CHLORHEXIDINE GLUCONATE 15 ML UDC MM SCH ×2 (10:09→16:47)
[2018-12-10] MEDS ORDERED: FAMOTIDINE/PF INJ 20 MG/2 ML VIAL IV ONE (14:45)
[2018-12-10] MEDS ORDERED: FENTANYL PF 100MCG/2ML AMPUL ONE (14:45)
[2018-12-10] MEDS ORDERED: LIDOCAINE HCL/PF 1% 30 ML SDV ONE (15:00)
[2018-12-10] MEDS ORDERED: HEPARIN SODIUM, PORCINE 1,000 UNIT/ML VIAL ONE (15:00)
[2018-12-10 16:00] VITALS: BP 134/76
--- NOTE | 2018-12-10 16:30 | NUR ---
ms rn notes pt arrived from OR vss. hd access placed in RIJ. pt transferred to [facility]. resumed care. post op orders carried out.
[2018-12-10] MEDS: NEPRO VAN 237 ML CAN PO SCH ×2 (18:53→20:56)
--- NOTE | 2018-12-10 19:30 | NUR ---
MS RN NOTE PATIENT REPORT GIVEN BEDSIDE. PATIENT CONFUSED ORIETED X 1 PATIENT UNABLE TO VERBALIZE NEEDS BUT STRIKING AT NURSES WITH MITTENS ON WHEN ATTEMPTING TO PROVIDE CARE. FAMILY FRIEND AT BEDSIDE AND CONFIRMS PATIENT BEHAVIOR. PATIENT BREATHING EVEN AND UNLABORED NO S/S OF DISTRESS. SAFETY PRECAUTIONS IN PLACE, SIDE RAILS UP X 2. RN WILL CONTINUE TO MONITOR FOR CHANGES AND CHECK HANDS FOR CIRCULATION Q 1 HOUR
[2018-12-10 20:00] VITALS: BP_SYST 126; BP_SYST 131; BP_DIAS 54; BP_DIAS 74
[2018-12-10] MEDS: ATORVASTATIN 10 MG TABLET GT SCH (22:20)
[2018-12-11] MEDS: IPRATROPIUM NEB FS 0.5 MG/2.5 ML AMPUL.NEB NEB SCH ×3 (01:30→13:30)
[2018-12-11] MEDS: ALBUTEROL FS 2.5 MG/0.5 ML VIAL.NEB NEB SCH ×3 (01:30→13:30)
[2018-12-11 04:00] VITALS: BP_SYST 13; BP_SYST 131; BP_DIAS 77
[2018-12-11] MEDS: INSULIN ASPART/LISPRO 100 UNIT/ML CARTRIDGE SQ SCH (06:24)
[2018-12-11] MEDS: CLINDAMYCIN 600 MG in IV D5W 50 ML IV SCH (06:25)
[2018-12-11 07:33] LABS: CALCIUM, SERUM 9.6 mg/dL (8.5-10.1); CARBON DIOXIDE 30 mmol/L (21-32); CHLORIDE 103 mmol/L (98-107); CREATININE 2.6 mg/dL (0.6-1.3); GLUCOSE 145 mg/dL (74-106); POTASSIUM 3.6 mmol/L (3.5-5.1); SODIUM SERUM 143 mmol/L (136-145); UREA NITROGEN, BLOOD 51 mg/dL (7-18)
[2018-12-11 08:03] VITALS: BP 132/62
[2018-12-11] MEDS: NEPRO VAN 237 ML CAN PO SCH (08:11)
[2018-12-11] MEDS: BLOOD SUGAR DIAGNOSTIC 1 EACH STRIP IN SCH (08:11)
[2018-12-11] MEDS: VIT B CMPLX 3/FA/VIT C/BIOTIN 1 TAB TABLET GT SCH (08:12)
[2018-12-11] MEDS: AMIODARONE HCL 200 MG TABLET GT SCH (08:12)
[2018-12-11] MEDS: LEVOTHYROXINE SODIUM 75 MCG TABLET GT SCH (08:13)
[2018-12-11] MEDS: ERYTHROMYCIN ETHYLSUCCINATE 200 MG/5 ML SUSPENSION GT SCH (08:13)
[2018-12-11] MEDS: METOPROLOL TARTRATE 25 MG TABLET GT SCH (08:13)
[2018-12-11] MEDS: ASCORBIC ACID 500 MG TABLET GT SCH (08:13)
[2018-12-11] MEDS: ASPIRIN 81 MG TAB.CHEW GT SCH (08:13)
[2018-12-11] MEDS: CHLORHEXIDINE GLUCONATE 15 ML UDC MM SCH (08:13)
[2018-12-11] MEDS: LIDOCAINE/PRILOCAINE (5GM) 5 GM TUBE TP SCH (08:14)
[2018-12-11] MEDS: INSULIN GLARGINE, 100 UNIT/ML CARTRIDGE SQ SCH (08:17)
[2018-12-11] MEDS: HYDROCORTISONE 1% CREAM 28.35 GM TUBE TP SCH (08:19)
[2018-12-11] MEDS: DAKINS QUARTER STRENGTH (0.125%) 480 ML BOTTLE TOP SCH (08:19)
[2018-12-11 08:25] VITALS: BP 132/62
[2018-12-11] MEDS: BUDESONIDE RESPULE INH 0.5 MG/2 ML AMPUL.NEB IH SCH (09:00)
--- NOTE | 2018-12-11 11:30 | NUR ---
RN DC NOTE PATIENT REMAINS A/Ox1, ON ROOM AIR, NO RESPIRATORY DISTRESS. DC ORDER RECEIVED, PATIENT SEEN BY SINGH BORRERO. REPORT GIVEN TO KEN GARIBAY. NEW HD CATH INTACT. NO S/S BLEEDING NOTED. CREAM APPLIED FOR RASH. WOUND PICTURES TAKEN. BELONGINGS ACCOUNTED FOR. NO DENTURES. PER , PATIENT CAME WITH CARDOSO. TAKEN VIA AMBULANCE @1130, AT BEDSIDE.
== END 2018-12-11 11:40 | DRG 314 ==
LOC: ER 11:46 → MEDSG1 13:19
PROVIDERS: ADMIT Family Medicine; ATTEND Nurse Practitioner Acute Care
PROC: 5A1D70Z Performance of Urinary Filtration, Intermittent, Less than 6 Hours Per Day (ICD-10-PCS; 2018-12-09)
PROC: 0JH63XZ Insertion of Tunneled Vascular Access Device into Chest Subcutaneous Tissue and Fascia, Percutaneous Approach (ICD-10-PCS; principal; 2018-12-10)
PROC: 05HM33Z Insertion of Infusion Device into Right Internal Jugular Vein, Percutaneous Approach (ICD-10-PCS; 2018-12-10)
PROC: B5131ZA Fluoroscopy of Right Jugular Veins using Low Osmolar Contrast, Guidance (ICD-10-PCS; 2018-12-10)
PROC: 5A1D70Z Performance of Urinary Filtration, Intermittent, Less than 6 Hours Per Day (ICD-10-PCS; 2018-12-10)
DX: T82.41XA Breakdown (mechanical) of vascular dialysis catheter, initial encounter (principal); L89.154 Pressure ulcer of sacral region, stage 4; N18.6 End stage renal disease; E43 Unspecified severe protein-calorie malnutrition; G93.41 Metabolic encephalopathy; J96.10 Chronic respiratory failure, unspecified whether with hypoxia or hypercapnia; Z99.11 Dependence on respirator [ventilator] status; I69.354 Hemiplegia and hemiparesis following cerebral infarction affecting left non-dominant side; D68.59 Other primary thrombophilia; I13.2 Hypertensive heart and chronic kidney disease with heart failure and with stage 5 chronic kidney disease, or end stage renal disease; Y83.9 Surgical procedure, unspecified as the cause of abnormal reaction of the patient, or of later complication, without mention of misadventure at the time of the procedure; Y92.89 Other specified places as the place of occurrence of the external cause; Z93.0 Tracheostomy status; E78.5 Hyperlipidemia, unspecified; K21.9 Gastro-esophageal reflux disease without esophagitis; R13.10 Dysphagia, unspecified; Z93.1 Gastrostomy status; Z95.1 Presence of aortocoronary bypass graft; I25.10 Atherosclerotic heart disease of native coronary artery without angina pectoris; I69.820 Aphasia following other cerebrovascular disease; D63.1 Anemia in chronic kidney disease; Z99.2 Dependence on renal dialysis; Z68.26 Body mass index [BMI] 26.0-26.9, adult; E03.9 Hypothyroidism, unspecified; E11.22 Type 2 diabetes mellitus with diabetic chronic kidney disease; E11.65 Type 2 diabetes mellitus with hyperglycemia; I25.2 Old myocardial infarction; R21 Rash and other nonspecific skin eruption; I50.9 Heart failure, unspecified; Q78.9 Osteochondrodysplasia, unspecified; E87.5 Hyperkalemia; F03.90 Unspecified dementia, unspecified severity, without behavioral disturbance, psychotic disturbance, mood disturbance, and anxiety
CPT/HCPCS: 36415; 71045-TC; 80048-TC; 80061-TC; 82962-TC; 83735-TC; 84100-TC; 84484-TC; 85025-TC; 85610-TC; 85730-TC; 87040-TC; 87081-TC; 90935-TC; 92526; 92611-TC; A6253; A6403; C1750; C1769; G0378; J1644; J1815; J2405; J2704; J2765; J3010; J3490; J7060; Q0163

== ENCOUNTER 2019-01-04 16:56 | Emergency (ER) | payer MEDICARE, OTHER ==
[~2019-01-04] VITALS: Ht 167.6 cm; Wt 71.7 kg
[~2019-01-04 16:56] MED LIST changes: +CEPH-569 PO; +LIDO30CR TP; -PIPE3.379 IV
--- NOTE | 2019-01-04 17:15 | NUR ---
PT BIBPA from Dialysis center for non functioning catheter. PT IS AAOX1, NOT IN RESPIRATORY DISTRESS, HOOKED TO MONITOR, KEPT RESTED AND COMFORTABLE, WILL CONTINUE TO MONITOR.
[2019-01-04] MEDS ORDERED: VIT1TABL46 PO (17:20)
[2019-01-04] MEDS ORDERED: PERM60CR4 TP (17:20)
[2019-01-04] MEDS ORDERED: GUAI-959 GT (17:20)
[2019-01-04] MEDS ORDERED: IVER3TAB2 GT (17:20)
[2019-01-04] MEDS ORDERED: DIPH50CA37 GT (17:20)
--- NOTE | 2019-01-04 17:24 | NUR ---
SEEN AND EXAMINED BY .
--- NOTE | 2019-01-04 17:30 | NUR ---
ER PHLEB AT BEDSIDE FOR BLOOD DRAW
--- NOTE | 2019-01-04 17:32 | NUR ---
PATIENT SERVICE REP AT BEDSIDE FOR XRAY.
[2019-01-04 18:28] LABS: BASOPHILS % (AUTO) 0.4 % (0.0-2.0); EOSINOPHILS % (AUTO) 5.7 % (0.0-6.0); HEMATOCRIT 42 % (39-51); HEMOGLOBIN 13.6 g/dL (13.5-17.5); LYMPHOCYTES % (AUTO) 8.4 % (20.0-44.0); MEAN CORPUSCULAR HGB CONC 32 g/dl (31.0-36.0); MEAN CORPUSCULAR VOLUME 97 fL (80-96); MONOCYTES # (AUTO) 0.8 /CMM (0.1-1.30); MONOCYTES % (AUTO) 6.8 % (2.0-12.0); NEUTROPHILS # (AUTO) 9.1 /CMM (1.8-8.9); NEUTROPHILS % (AUTO) 78.7 % (43.0-81.0); PLATELET COUNT (AUTO) 232 /CMM (150-450); RED BLOOD CELL COUNT(AUTO) 4.37 MIL/uL (4.5-6.0); WHITE BLOOD COUNT (AUTO) 11.5 K/uL (4.3-11.0)
[2019-01-04 18:40] LABS: CALCIUM, SERUM 10.1 mg/dL (8.5-10.1); CARBON DIOXIDE 24 mmol/L (21-32); CHLORIDE 103 mmol/L (98-107); CREATININE 3.5 mg/dL (0.6-1.3); GLUCOSE 149 mg/dL (74-106); POTASSIUM 4.5 mmol/L (3.5-5.1); SODIUM SERUM 138 mmol/L (136-145)
[2019-01-04 18:41] LABS: UREA NITROGEN, BLOOD 90 mg/dL (7-18)
--- NOTE | 2019-01-04 19:07 | NUR ---
CHRISTIANNE FROM [facility] CONTACTED FOR BLS TRANSPORT. ETA IS [id number]. TICKET #: [id number]
--- NOTE | 2019-01-04 19:14 | NUR ---
SPOKED TO [facility] TO SEND PT BACK TOMORROW BEFORE 8AM FOR VASCULAR SURGEON JANENE OF DAILYSIS SITE.
[2019-01-04] MEDS ORDERED: diphenhydrAMINE HCL 25 MG CAPSULE ONE (19:28)
[2019-01-04] MEDS ORDERED: diphenhydrAMINE HCL 25 MG CAPSULE PO ONE (19:30)
--- NOTE | 2019-01-04 21:44 | NUR ---
UPDATED ETA 7 MINUTES
[2019-01-04] MEDS ORDERED: LORAZEPAM INJ 2 MG/ML VIAL ONE (21:49)
[2019-01-04] MEDS ORDERED: LORAZEPAM INJ 2 MG/ML VIAL IM ONE (22:00)
--- NOTE | 2019-01-04 22:19 | NUR ---
Patient discharged to [facility] in stable condition. Written and verbal after care instructions given to Nurse Tootie. [facility] [address] at bedside for pt transport to facility. Report given. facility also notified of pt's BP 160/82, spoke w/ Tootie
[2019-01-04 22:21] VITALS: BP 160/82
[2019-01-05] MEDS ORDERED: LIDO30CR47 TP (08:30)
== END 2019-01-04 22:22 | disposition home or self-care (01) ==
LOC: ER 16:58
DX: T82.49XA Other complication of vascular dialysis catheter, initial encounter (principal); I13.2 Hypertensive heart and chronic kidney disease with heart failure and with stage 5 chronic kidney disease, or end stage renal disease; I50.9 Heart failure, unspecified; E11.22 Type 2 diabetes mellitus with diabetic chronic kidney disease; N18.6 End stage renal disease; J96.01 Acute respiratory failure with hypoxia; Z99.2 Dependence on renal dialysis; Z95.5 Presence of coronary angioplasty implant and graft; Z93.1 Gastrostomy status; Z93.0 Tracheostomy status; Z95.1 Presence of aortocoronary bypass graft; Z79.899 Other long term (current) drug therapy; Z79.4 Long term (current) use of insulin; Z79.82 Long term (current) use of aspirin
CPT/HCPCS: 36415; 71045; 80048; 85025; 96372; 99284; J2060; Q0163

== ENCOUNTER 2019-01-05 07:38 | Inpatient (IN) | payer MEDICARE, OTHER ==
[~2019-01-05] VITALS: Ht 167.6 cm; Wt 72.1 kg
[~2019-01-05 07:38] MED LIST changes: +DIPH50CA37 GT; +GUAI-959 GT; +IVER3TAB2 GT; +PERM60CR4 TP; +VIT1TABL46 PO
--- NOTE | 2019-01-05 07:43 | NUR ---
PT KENNETH FROM [facility] C/O DIALYSIS CATH MALFUNCTION STARTED YESTERDAY, PT IS AAOX1, NOT IN RESPIRATORY DISTRESS, HOOKED TO MONITOR, KEPT RESTED AND COMFORTABLE, WILL CONTINUE TO MONITOR.
--- NOTE | 2019-01-05 07:49 | NUR ---
SEEN AND EXAMINED BY DR. JONES.
--- NOTE | 2019-01-05 08:00 | NUR ---
ER PHLEB AT BEDSIDE FOR BLOOD DRAW.
[2019-01-05 08:06] LABS: BASOPHILS # (AUTO) 0.1 /CMM (0.0-0.2); BASOPHILS % (AUTO) 0.8 % (0.0-2.0); EOSINOPHILS % (AUTO) 8.9 % (0.0-6.0); HEMATOCRIT 44 % (39-51); HEMOGLOBIN 13.9 g/dL (13.5-17.5); LYMPHOCYTES # (AUTO) 1.2 /CMM (0.8-4.8); LYMPHOCYTES % (AUTO) 11.3 % (20.0-44.0); MEAN CORPUSCULAR HGB CONC 32 g/dl (31.0-36.0); MEAN CORPUSCULAR VOLUME 98 fL (80-96); NEUTROPHILS # (AUTO) 7.4 /CMM (1.8-8.9); PLATELET COUNT (AUTO) 226 /CMM (150-450); RED BLOOD CELL COUNT(AUTO) 4.49 MIL/uL (4.5-6.0); WHITE BLOOD COUNT (AUTO) 10.5 K/uL (4.3-11.0)
[2019-01-05 08:20] LABS: CALCIUM, SERUM 10.3 mg/dL (8.5-10.1); CARBON DIOXIDE 26 mmol/L (21-32); CHLORIDE 105 mmol/L (98-107); CREATININE 3.7 mg/dL (0.6-1.3); GLUCOSE 150 mg/dL (74-106); POTASSIUM 4.4 mmol/L (3.5-5.1); SODIUM SERUM 140 mmol/L (136-145)
[2019-01-05 08:22] LABS: UREA NITROGEN, BLOOD 91 mg/dL (7-18)
[2019-01-05] MEDS ORDERED: LIDO30CR47 TP (08:30)
[2019-01-05] MEDS ORDERED: LIDOCAINE HCL/MPF 1% 30 ML VIAL IJ ONE (09:19)
[2019-01-05] MEDS ORDERED: ANESTHESIA TRAY IN PYXIS 1 EA TRAY MC ONE (09:19)
[2019-01-05] MEDS ORDERED: HEPARIN SODIUM, PORCINE 1,000 UNIT/ML VIAL ONE (09:19)
--- NOTE | 2019-01-05 09:29 | NUR ---
AT BEDSIDE FOR EVAL.
--- NOTE | 2019-01-05 09:33 | NUR ---
PT IS WHEELED TO OR.
[2019-01-05] MEDS ORDERED: FENTANYL PF 100MCG/2ML AMPUL ONE (09:36)
--- NOTE | 2019-01-05 09:37 | NUR ---
REPORT GIVEN TO JES ORELLANA FOR CONTINUITY OF CARE IN SURGERY
--- NOTE | 2019-01-05 10:55 | NUR ---
RN MS NOTES RECEIVED PT FROM O.R. STAFF VIA [facility], FAMILY AT BEDSIDE, PT IS AWAKE, NOT IN DISTRESS, NO SIGN OF PAIN, ASSISTED TO BED, MADE COMFORTABLE, ROOM SET UP ORIENTATION PROVIDED TO PT AND FAMILY, VERBALIZED UNDERSTANDING, RECEIVED POST OP ORDERS FROM DR. NORRIS, DR. EWING AND DR. GOVEA INFORMED, AWAITING ADMITTING ORDERS, SLIGHT BLEEDING NOTED TO PERMACATH DRESSING AT RIGHT UPPER CHEST, KEPT COMFORTABLE IN BED, VITALS TAKEN AND RECORDED.
[2019-01-05 11:00] VITALS: BP_SYST 119; BP_SYST 163; BP_DIAS 53; BP_DIAS 76
[2019-01-05] MEDS ORDERED: HYDROCODONE/APAP 5/325MG 1 EACH TABLET PO PRN (11:00)
[2019-01-05] MEDS ORDERED: diphenhydrAMINE HCL 50 MG CAPSULE PO PRN (12:30)
[2019-01-05] MEDS ORDERED: LOPERAMIDE HCL (2 MG CAP) 2 MG CAPSULE PO PRN (12:30)
[2019-01-05] MEDS ORDERED: BISACODYL SUPP (10 MG) 10 MG/SUPP.RECT SUPP.RECT RC PRN (12:30)
[2019-01-05] MEDS ORDERED: METOCLOPRAMIDE HCL 10 MG/10 ML UDC GT PRN (12:30)
[2019-01-05] MEDS ORDERED: CLONIDINE HCL 0.1 MG TABLET GT PRN (12:30)
[2019-01-05] MEDS ORDERED: DEXTROSE 50%-WATER 50 ML DISP.SYRIN IV PRN (13:00)
[2019-01-05] MEDS ORDERED: INSULIN REGULAR, HUMAN 100 UNIT/ML 3 ML VIAL SQ PRN (13:00)
--- NOTE | 2019-01-05 13:41 | NUR ---
RN MS NOTES DIALYSIS ONGOING, TOLERATING WELL
--- NOTE | 2019-01-05 15:35 | NUR ---
RN MS NOTES PER PT'S , PT IS TOO SLEEPY TO EAT AND HAS POOR APPETITE AT THIS TIME, REQUESTS IF WE CAN START GT FEEDING, PT IS ON NEPRO BOLUS AT THE ASSISTED, CLARIFIED WITH NURSE KHAI, PER MD LUNSFORD TO START NEPRO 50ML/HR GT FEEDING.
[2019-01-05 16:00] VITALS: BP 119/53
[2019-01-05] MEDS ORDERED: NEPRO 1,000 ML BOTTLE GT PRN (16:00)
[2019-01-05] MEDS ORDERED: METOPROLOL TARTRATE 25 MG TABLET GT SCH (17:00)
[2019-01-05] MEDS ORDERED: BUDESONIDE RESPULE INH 0.5 MG/2 ML AMPUL.NEB IH SCH (17:00)
[2019-01-05] MEDS ORDERED: CHLORHEXIDINE GLUCONATE 15 ML UDC MM SCH (17:00)
[2019-01-05] MEDS ORDERED: BLOOD SUGAR DIAGNOSTIC 1 EACH STRIP IN SCH (18:00)
--- NOTE | 2019-01-05 19:06 | NUR ---
RN MS NOTES PT IN BED, AWAKE, ALERT TO SELF, NO SIGN OF PAIN OR DISTRESS, COMPLETED DIALYSIS, TOLERATED WELL, SEEN BY DR. EWING, DISCHARGE ORDER GIVEN BY MD, DISCHARGE AND MEDICATION INSTRUCTIONS PROVIDED TO MONTY, VERBALIZED UNDERSTANDING, REPORT GIVEN TO NORMA ORELLANA OF [facility], PATROL CAPTAIN TIME AT 8PM, SACRAL WOUND DRESSING DONE, PM CARE PROVIDED, REPOSITIONED FOR COMFORT AND CIRCULATION, ALL NEEDS ATTENDED, ENDORSED CARE TO ISABEL RN FOR CONTINUITY OF CARE.
--- NOTE | 2019-01-05 19:30 | NUR ---
RN NOTES RECEIVED PATIENT AWAKE, ALERT ORIENTED X2, NO SIGNS OF ACUTE RESPIRATORY DISTRESS NOTED, BREATHING EVEN AND UNLABORED, S/P PERM CATH PLACEMENT TODAY BY , ON RIGHT INTERNAL JUGULAR TUNNELED CATHETER. DRESSING INTACT. S/P HEMODIALYSIS TODAY 1 LITER OUT, REPORTED BY AM NURSE. PERIPHERAL IV LINE ON HIS RIGHT HAND G#[id number], INTACT AND PATENT, AT BEDSIDE. FOR DISCHARGE TONIGHT, R[employer] LANGU[employer] PROFESSOR TIME IS 1999 PER AM NURSE SPOKE TO REYNA GREEN OF [facility], AWAITING [employer]USSIAN LANGUAGE PROFESSOR AT THIS TIME. ALL NEEDS ATTENDED, REPOSITIONED FOR COMFORT. WILL MONITOR ACCORDINGLY.
[2019-01-05 20:11] VITALS: BP 110/57
--- NOTE | 2019-01-05 20:46 | NUR ---
DATA SECURITY ADMINISTRATOR NOT[facility] PATIENT'S AT BEDSIDE, GT INTACT AND PATENT, FLUSHED, PERIPHERAL IV LINE REMOVED, DISCHARGE PACKET GIVEN, ALL PERSONAL BELONGINGS ACCOUNTED FOR, HEALTH TEACHINGS GIVEN, VERBALIZES UNDERSTANDING ABOUT CARE. ALL NEEDS ATTENDED AND MET. PATIENT LEFT THE UNIT AT 2039 MEDICALLY STABLE, CHARGE NURSE AWARE OF DISCHARGE.
[2019-01-05] MEDS ORDERED: ATORVASTATIN 10 MG TABLET GT SCH (22:00)
[2019-01-06] MEDS ORDERED: LEVOTHYROXINE SODIUM 88 MCG TABLET GT SCH (07:30)
[2019-01-06] MEDS ORDERED: AMIODARONE HCL 200 MG TABLET GT SCH (09:00)
[2019-01-06] MEDS ORDERED: PROSOURCE / PROSTAT (PYXIS) 30 ML UDC GT SCH (09:00)
[2019-01-06] MEDS ORDERED: INSULIN GLARGINE, 100 UNIT/ML CARTRIDGE SQ SCH (09:00)
[2019-01-06] MEDS ORDERED: ASPIRIN 81 MG TAB.CHEW GT SCH (09:00)
[2019-01-09] MEDS ORDERED: IVERMECTIN 3 MG TABLET GT SCH (09:00)
[2019-01-09] MEDS ORDERED: PERMETHRIN 5% CRM 60 GM TUBE TP SCH (09:00)
== END 2019-01-05 20:40 | DRG 314 ==
LOC: ER 07:38 → MED 11:39
PROVIDERS: ADMIT Nurse Practitioner Acute Care; ATTEND Nurse Practitioner Acute Care
PROC: 05PY33Z Removal of Infusion Device from Upper Vein, Percutaneous Approach (ICD-10-PCS; principal; 2019-01-05)
PROC: 0JH63XZ Insertion of Tunneled Vascular Access Device into Chest Subcutaneous Tissue and Fascia, Percutaneous Approach (ICD-10-PCS; 2019-01-05)
PROC: 02H633Z Insertion of Infusion Device into Right Atrium, Percutaneous Approach (ICD-10-PCS; 2019-01-05)
PROC: B518YZA Fluoroscopy of Superior Vena Cava using Other Contrast, Guidance (ICD-10-PCS; 2019-01-05)
PROC: 5A1D70Z Performance of Urinary Filtration, Intermittent, Less than 6 Hours Per Day (ICD-10-PCS; 2019-01-05)
DX: T82.41XA Breakdown (mechanical) of vascular dialysis catheter, initial encounter (principal); N18.6 End stage renal disease; I13.2 Hypertensive heart and chronic kidney disease with heart failure and with stage 5 chronic kidney disease, or end stage renal disease; I50.32 Chronic diastolic (congestive) heart failure; G93.40 Encephalopathy, unspecified; I69.354 Hemiplegia and hemiparesis following cerebral infarction affecting left non-dominant side; E11.22 Type 2 diabetes mellitus with diabetic chronic kidney disease; E03.9 Hypothyroidism, unspecified; E83.52 Hypercalcemia; I48.0 Paroxysmal atrial fibrillation; I25.10 Atherosclerotic heart disease of native coronary artery without angina pectoris; Z93.0 Tracheostomy status; Z87.440 Personal history of urinary (tract) infections; Z86.74 Personal history of sudden cardiac arrest; Z99.2 Dependence on renal dialysis; Z95.1 Presence of aortocoronary bypass graft; E78.5 Hyperlipidemia, unspecified; Y71.2 Prosthetic and other implants, materials and accessory cardiovascular devices associated with adverse incidents; I69.320 Aphasia following cerebral infarction; Z79.4 Long term (current) use of insulin; Z93.1 Gastrostomy status; Y83.8 Other surgical procedures as the cause of abnormal reaction of the patient, or of later complication, without mention of misadventure at the time of the procedure; Y92.129 Unspecified place in nursing home as the place of occurrence of the external cause; R13.10 Dysphagia, unspecified; Z79.82 Long term (current) use of aspirin
CPT/HCPCS: 36415; 71045-TC; 80048-TC; 82962-TC; 85025-TC; 85610-TC; 85730-TC; 87340; A6253; A6403; G0378; J0690; J1644; J1815; J2704; J3010; J3490; Q0163